=== PATIENT | female | born 1955 | race Caucasian/White ===

== ENCOUNTER 2019-06-25 10:29 | Outpatient (CLI) | payer BC, SELFPAY ==
--- NOTE | ~2019-06-25 | US_ITS ---
EXAMINATION: US abscess cyst aspiration DATE: 06/25/2019 11:52 INDICATION: Enlarged left cervical lymph nodes TECHNIQUE: The procedure including the risks and benefits was discussed with the patient. Risks discu ssed included bleeding and infection. The patient understood the risks and agreed to proceed. The sk in overlying the dominant lesion of concern at the left base of the neck/supraclavicular region was p repped and draped in usual sterile fashion. Anesthetic was administered with 1% lidocaine subcutaneo usly. An 18 gauge needle was advanced under continuous ultrasound observation to the lesion of inter est. 10 mm of purulent appearing fluid was aspirated and sent to the lab for Gram stain and aerobic/a naerobic cultures. Given the clear signs of infection the planned core biopsy was deferred. The need le was removed and the entry site was cleaned and dressed. Post procedure ultrasound demonstrated no hemorrhage. COMPARISON: Outside institution CT dated 06/12/2019 FINDINGS: There was significant focal erythema immediately overlying the region of concern with assoc iated tenderness to palpation. Ultrasound images demonstrate a 3.2 x 3.2 x 3.2 cm globular hypoechoic lesion with irregular peripheral echogenic wall consistent with abscess at the region of prior clust er of enlarged left posterior triangle lymph nodes indicated by a marker on the prior CT. A few addit ional small hypoechoic lymph nodes are seen peripheral to the likely suppurative lymph node. On merchant patroller imaging a few mildly enlarged likely reactive left jugular chain lymph nodes are identified. IMPRESSION: 1. Successful Ultrasound-guided aspiration of a 3.2 x 3.2 x 3.2 cm abscess at the region of concern l ikely representing a suppurative lymph node. Planned core needle biopsy was deferred at this time. Co nsider follow-up ultrasound imaging in a few months following treatment to document resolution of the likely reactive lymphadenopathy. Dr. Godinez discussed these findings with Dr. Nielsen at 12:10 P M. Reviewed, dictated and finalized at location A. IMPRESSION: 1. Successful Ultrasound-guided aspiration of a 3.2 x 3.2 x 3.2 cm abscess at t he region of concern likely representing a suppurative lymph node. Planned core needle biopsy was deferred at this time. Consider follow-up ultrasound imaging in a few months following treatment to document resolution of the likely react biju lymphadenopathy. Dr. Godinez discussed these findings with Dr. Gia rojas 12:10 PM.
== END 2019-06-25 10:30 | disposition home or self-care (01) ==
PROVIDERS: PCP Family Medicine Sports Medicine; Visit Provider Otolaryngology
DX: R59.0 Localized enlarged lymph nodes (principal)
CPT/HCPCS: 76942; 87070; 87075; 87077; 87205

== ENCOUNTER → 2022-09-08 12:50 | Outpatient (CLI) | payer MEDICARE, SELFPAY ==
--- NOTE | ~2022-09-08 | MR_ITS ---
EXAMINATION: MR cervical spine wo con DATE: 09/08/2022 13:23 INDICATION: Cervical radiculopathy. TECHNIQUE: Magnetic resonance imaging (MRI) of the cervical spine was performed without intravenous c ontrast. Sequences included sagittal T2-weighted FSE, sagittal T2-weighted FS FSE, sagittal T1-weight ed FSE, axial MERGE, and axial T2-weighted FSE. COMPARISON: None FINDINGS: There is hypolordosis of cervical spine. Vertebral body heights are normal. There is modera tely decreased disc height at C4-C5 and severely decreased disc height at C5-C6 and C6-C7. There is i ncreased T2-weighted signal intensity in the spinal cord at C5-C6 centered at the francois matter, consis tent with myelomalacia. The following disc levels are specifically discussed: C2-C3: The disc does not extend beyond the endplate margin. There is no uncovertebral joint osteoarth ritis. There is severe bilateral facet joint osteoarthritis. There is mild right neural foraminal danie nosis. There is no central canal stenosis. C3-C4: The disc is bulging. There is mild bilateral uncovertebral joint osteoarthritis. There is wes re bilateral facet joint osteoarthritis. There is mild lateral neural foraminal stenosis. There is mi ld central canal stenosis with ventral indentation of the spinal cord. C4-C5: The disc is bulging. There is moderate bilateral uncovertebral joint osteoarthritis. There is severe right and moderate left facet joint osteoarthritis. There is moderate right and mild left neur al foraminal stenosis. There is mild central canal stenosis with ventral indentation of the spinal co rd. C5-C6: The disc is bulging. There is severe bilateral uncovertebral joint osteoarthritis. There is mi ld bilateral facet joint osteoarthritis. There is moderate and severe left neural foraminal stenosis. There is severe central canal stenosis with ventral and dorsal indentation of the spinal cord and in creased signal in the cord. C6-C7: The disc is bulging. There is severe bilateral uncovertebral joint osteoarthritis. There is mi ld right facet joint osteoarthritis. There is mild bilateral neural foraminal stenosis. There is mild central canal stenosis. C7-T1: The disc does not extend beyond the endplate margin. There is no uncovertebral joint osteoarth ritis. There is severe right and mild left facet joint osteoarthritis. There is mild right neural for aminal stenosis. There is no central canal stenosis. IMPRESSION: 1. Myelomalacia at C5-C6. 2. Severe cervical spondylosis. Reviewed, dictated and finalized at location A.
== END ==
PROVIDERS: PCP Family Medicine Sports Medicine
DX: M47.22 Other spondylosis with radiculopathy, cervical region (principal)
CPT/HCPCS: 72141

== ENCOUNTER 2022-12-09 11:23 | Outpatient (CLI) | payer MEDICARE, SELFPAY ==
--- NOTE | ~2022-12-09 | XR_ITS ---
EXAMINATION: XR chest 2V DATE: 12/09/2022 12:11 INDICATION: Cervical spinal stenosis for preoperative evaluation. TECHNIQUE: PA and lateral views of the chest were obtained. COMPARISON: None FINDINGS: The lungs are clear with no focal airspace opacities, pulmonary edema, pleural effusion or pneumothor ax. The cardiomediastinal silhouette is normal. Cholecystectomy clips in right upper quadrant. Modera te midthoracic spondylosis. IMPRESSION: 1. No acute cardiopulmonary disease. Reviewed, dictated and finalized at location A.
--- NOTE | 2022-12-09 11:32 | ECG_ITS ---
Measurements Intervals [place] Rate: 69 P: 33 IN: 167 QRS: -9 QRSD: 83 T: 10 QT: 406 QTc: 436 Interpretive Statements SINUS RHYTHM BORDERLINE T WAVE ABNORMALITY- INFERIOR LEADS BASELINE ARTIFACT- I, II, III, AVR, AVL, AVF, V1-V6 BORDERLINE ECG NO PREVIOUS ECG AVAILABLE FOR COMPARISON Electronically Signed On 12-09-2022 14:24:04 CDT by Miguel Das D.O.
[2022-12-09 12:11] LABS: Hematocrit 39.2 % (37.0-47.0); Hemoglobin 13.1 g/dL (12.0-15.0); Mean Corpuscular HGB Conc 33.4 g/dl (32-36); Mean Corpuscular Hemoglobin 30.6 pg (26-34); Mean Corpuscular Volume 91.6 fl (80-100); Mean Platelet Volume 9.9 fl (7.4-10.4); Platelet Count Result 401 k/mm3 (150-375); Red Blood Count 4.28 M/mm3 (4.2-5.4); Red Cell Distribution Width 12.5 % (11.5-14.5); White Blood Count 8.9 K/mm3 (4.5-10.0)
[2022-12-09 12:21] LABS: Prothrombin Time 13.9 Seconds (11.1-14.7)
[2022-12-09 12:33] LABS: Anion Gap 6 mmol/L (8-16); Blood Urea Nitrogen 14 mg/dL (7-17); Calcium 8.9 mg/dL (8.4-10.2); Carbon Dioxide 32 mmol/L (22-30); Chloride 100 mmol/L (98-107); Estimated Glomerular Filt Rate > 60; Glucose 111 mg/dL (65-110); Potassium 3.8 mmol/L (3.4-5.0); Sodium 138 mmol/L (137-145)
[2022-12-09 12:37] LABS: Add Urine Microscopic? YES; Appearance Urine Cloudy (Clear); Bacteria Urine None Seen /hpf; Bilirubin Urine 1+ (Negative); Blood Urine Negative (Negative); Calcium Oxalate Crystals Urine Present /hpf; Color Urine Dark Yellow (Yellow); Glucose Urine UA Negative (Negative); Ketones Urine Trace mg/dL (Negative); Leukocyte Esterase Ur Negative LEU/UL (Negative); Need Manual Microscopic Reviewed; Nitrate Urine Negative (Negative); Non Pathogenic Casts 0-2; Protein Urine Trace mg/dL (Negative); Squamous Epithelial Cell Urine Occasional /hpf (Few); Urobilinogen Urine 0.2 mg/dL (<2.0); WBC Urine 0-5 /hpf; pH Urine 5.5 (5.0-9.0)
== END 2022-12-09 11:24 | disposition home or self-care (01) ==
LOC: ANHSURGERY 11:26
PROVIDERS: PCP Family Medicine Sports Medicine; Visit Provider Neurological Surgery
DX: M48.02 Spinal stenosis, cervical region (principal); I10 Essential (primary) hypertension; Z01.818 Encounter for other preprocedural examination; R94.31 Abnormal electrocardiogram [ECG] [EKG]
CPT/HCPCS: 36415; 71046; 80048; 81001; 85027; 85610; 85730; 86850; 86900; 86901; 93005

== ENCOUNTER 2023-01-21 11:33 | Outpatient (CLI) | payer MEDICARE, SELFPAY | END 2023-01-21 11:34 | disposition home or self-care (01) | LOC: ANHSURGERY 11:36 | PROVIDERS: PCP Family Medicine Sports Medicine; Visit Provider Neurological Surgery | DX: Z01.818 Encounter for other preprocedural examination (principal); M48.02 Spinal stenosis, cervical region | CPT/HCPCS: 36415; 86850; 86900; 86901 ==

== ENCOUNTER 2023-01-27 01:39 | Day surgery (SDC) | payer MEDICARE, SELFPAY ==
[2022-12-09 09:40] VITALS: BMI 33.9
--- NOTE | 2022-12-09 10:21 | PC.NURSE ---
PRE-OP INSTRUCTIONS, PLEASE READ CAREFULLY Report to the Outpatient Waiting Room, entrance under the green pavilion located off [facility], at time _0630_ on date _12/14/22_. Planned Procedure Time: _0830_. PACK A SMALL OVERNIGHT BAG AND LEAVE IN THE CAR Time changes happen often and if your time is changed the preop area will call you the afternoon before. - You and your visitor will be asked to self-screen and do not enter if you have any COVID symptoms. - A mask is optional within the hospital at this time. -VISITING HOURS 8AM-8PM Patients may have clear liquids (water, carbonated beverages, clear teas, apple juice) until 3 hours prior to surgery (0530 AM) with a maximum of 20 ounces. - No food from midnight until time of surgery Take the following medications with a SIP of water the morning of surgery: _CARVEDILOL, LEVOTHYROXINE, & PAIN PILL IF NEEDED_ DO NOT STOP ANY OF YOUR OTHER PRESCRIPTION MEDICATIONS PRIOR TO SURGERY ?EXCEPT THE FOLLOWING Medications to discontinue per ANESTHESIA - _SUPPLEMENTS 3 DAYS PRIOR TO SURGERY, Date to take last dose 12/10/22_ Please no make-up, nail marshallese, hairspray, perfume, deodorant, or body powder the day of surgery. No jewelry (including any body piercings) or valuables the day of surgery, leave them at home. Please take a shower or bath the night before, or the morning of, surgery with an antibacterial soap. Wear comfortable, loose fitting clothing. - Jewelry must be removed prior to entering the operating room. Rings and piercings that are not removed may be cut off. - The hospital will not accept responsibility for valuables. - Please leave all valuables, including medications, at home the day of surgery. If you are going home after surgery, a licensed set key driver must drive you home. - NO public transportation without another adult if you receive anesthesia. - We recommend that an adult stay with you for 24 hours following discharge. - We also recommend that you do not drive, make important decision, drink alcoholic beverages, or take any drugs that were not prescribed by your health care provider for at least 24 hours after your discharge time. Follow any additional instructions given to you from your surgeon. If you or anyone in your household have experienced Covid symptoms in the past week, please notify your surgeon or the nurse liaison at the phone number below for possible testing. Telephone instructions given to _PATIENT_and asked if any additional questions and then verbalized understanding. Patient advised to call surgeon office or pre surgery nurse liaison [phone] if any additional questions.
--- NOTE | 2023-01-18 12:26 | PC.NURSE ---
Report to the Outpatient Waiting Room, entrance under the green pavilion located off [facility], at time _1030_ on date _[id number]_. Planned Procedure Time: _1230_. Time changes happen often and if your time is changed the preop area will call you the afternoon before. - You and your visitor will be asked to self-screen and do not enter if you have any COVID symptoms. - A mask is optional within the hospital at this time. Patients may have clear liquids (water, carbonated beverages, clear teas, apple juice) until 3 hours prior to surgery with a maximum of 20 ounces. - No food from midnight until time of surgery Take the following medications with a SIP of water the morning of surgery: ___Carvedilol, Levothyroxine and if needed pain pill. DO NOT STOP ANY OF YOUR OTHER PRESCRIPTION MEDICATIONS PRIOR TO SURGERY ?EXCEPT THE FOLLOWING Medications to discontinue per physician ____All vitamins and supplements Date to take last izsq__[phone] Please no make-up, nail greenlandic, hairspray, perfume, deodorant, or body powder the day of surgery. No jewelry (including any body piercings) or valuables the day of surgery, leave them at home. Please take a shower or bath the night before, or the morning of, surgery with an antibacterial soap. Wear comfortable, loose fitting clothing. - Jewelry must be removed prior to entering the operating room. Rings and piercings that are not removed may be cut off. - The hospital will not accept responsibility for valuables. - Please leave all valuables, including medications, at home the day of surgery. If you are going home after surgery, a licensed sales route driver must drive you home. - NO public transportation without another adult if you receive anesthesia. - We recommend that an adult stay with you for 24 hours following discharge. - We also recommend that you do not drive, make important decision, drink alcoholic beverages, or take any drugs that were not prescribed by your health care provider for at least 24 hours after your discharge time. Follow any additional instructions given to you from your surgeon. If you or anyone in your household have experienced Covid symptoms in the past week, please notify your surgeon or the nurse liaison at the phone number below for possible testing. Telephone instructions given to __Mckayla_and asked if any additional questions and then verbalized understanding. Patient advised to call surgeon office or pre surgery nurse liaison [phone] if any additional questions.
--- NOTE | 2023-01-26 14:23 | WPDANESEPPF ---
Anes - Initial Pre Proc Eval Procedure: Operation Date: 01/27/23 12:30 Proposed Procedures p C5-6, C6-7 Anterior Cervical Discectomy with Fusion - Kavita Espinoza MD Date/Time: 01/26/23 14:23 Surgeon: Kavita Espinoza MD Pre Op Diagnosis: spinal stenosis of cervical region Patient Data Age: 67 Gender: F Height: 1.57 m Weight: 84.09 kg Allergies Allergy/AdvReac Type Severity Reaction Status Date / Time atorvastatin AdvReac Mild MUSCLE Verified 01/27/23 08:03 WEAKNESS simvastatin AdvReac Mild MUSCLE Verified 01/27/23 08:03 WEAKNESS tramadol AdvReac Unknown Gi upset Verified 01/27/23 08:03 Home Medications Medication Instructions Recorded Confirmed Type ezetimibe 10 mg tablet 10 mg PO DAILY 02/04/22 01/27/23 History levothyroxine 50 mcg capsule 50 mcg PO DAILY 02/04/22 01/27/23 History finasteride 1 mg tablet 1 mg PO DAILY 10/01/22 01/27/23 History hydrocodone 5 mg-acetaminophen 325 1 tablet PO QHS PRN Pain 10/01/22 01/27/23 History mg tablet NAC 2 tab-cap DAILY 12/09/22 01/27/23 History Sbi 300 g DAILY 12/09/22 01/27/23 History Vit D With Vit K 10 drp DAILY 12/09/22 01/27/23 History carvedilol 6.25 mg tablet 6.25 mg BID 12/09/22 01/27/23 History magnesium 200 mg tablet 200 mg PO DAILY 12/09/22 01/27/23 History Patient hx anesthesia problems: none Family hx anesthesia problems: none Results Review: All pre-operative results and documents have been reviewed as part of the pre-operative evaluation. [facility] Past Medical History Medical History (Updated 01/26/23 @ 14:23 by Fabricio Vora DO) Cholecystectomy planned CTS (carpal tunnel syndrome) BL Hiatal hernia Hyperlipidemia Hypothyroidism Mitral valve prolapse PONV (postoperative nausea and vomiting) Screening mammogram for breast cancer Surgical History Surgical History H/O section H/O knee surgery X2 H/O tubal ligation History of appendectomy Family History Family History (Updated 10/01/22 @ 12:08 by Nubia Garrett MA) Mother Ovarian cancer Hypertension Depression Sibling Heart murmur Hypertension Depression Father Alcoholism Heart disease Cerebrovascular accident Grandparent Hypertension Heart disease Cerebrovascular accident Grandparent Cancer Heart disease Other Family history of arthritis Family history of heart disease in male family member before age 55 Social History Social History (Updated 10/01/22 @ 12:06 by Nubia Garrett MA) Social History: Mckayla is very confident filling out medical forms. In the last 12 months she has not received assistance from an organization or program. The date of her last physical exam was 09/16/22. She denies being . She has had 4 pregnancies resulting in 4 live births. The date of her last menstrual cycle was in 2005. Her usual menstrual cycle was irregular. She is menopausal and does experience menopausal symptoms. The date of her last PAP test was 2021, with normal results. She does not perform self breast exams. She denies ever giving herself street drugs with a needle. She reports eating a healthy diet and and exercising regularly. She denies having frequent falls. She reports being sexually active but not trying for a . Her caffeine intake consists of 2 cups per day of coffee, tea, and/or cola. Smoking packs per day: 0.5 Smoking cigarettes per day: 10.0 Years smoked: 35 Smoking pack-years: 17.50 Smoking status: Former smoker Tobacco type: cigarettes Second hand tobacco smoke exposure: No Smoking end date: 04/04/86 Alcohol intake: current Alcohol use details: 3 DRINKS/EVERY 2 WKS - NONE FOR PAST SEVERAL WEEKS Substance use: current Substance use type: marijuana Other substance usage details: CBD/THC 5MG PRN - PAIN Last use: 12/07/22 Lack of Transportation: No Lack of Food: Never True Current Housing: I Have Housing Concerne
[2023-01-27] VITALS (14 sets, daily range): BP systolic 127–157; BP diastolic 73–95; PULSE 73–85; RESP 12–20; TEMP 36.4–37.1; O2SAT 94–100
--- NOTE | ~2023-01-27 | XR_ITS ---
XR fluoroscopy no charge Procedure: Discectomy with fusion TECHNIQUE: Fluoroscopy used during Discectomy with fusion performed by [Kavita Espinoza MD] on 1 . 12 seconds of fluoroscopy with 4 fluoroscopic images captured. ]The DAP for this procedure was [XXXXDAP#.#XXX mGym2. ] FINDINGS: Correlate with procedure note. Surgical changes are present at C5-7. IMPRESSION: Fluoroscopy used during Discectomy with fusion at C5-C7. Please refer to procedural repor t. Reviewed, dictated and finalized at location L. IMPRESSION: Fluoroscopy used during Discectomy with fusion at C5-C7. Please ref er to procedural report.
[2023-01-27] MEDS: LACTATED RINGERS 1,000 ML 30 ML IV CONT ×2 (08:32→13:37)
--- NOTE | 2023-01-27 10:19 | PM.IMHP ---
H&P: HPI History of Present Illness Date/Time: 01/27/23 10:19 Chief Complaint: Mckayla Monroy? is a very pleasant 67-year-old female who presents with a chief complaint of neck and upper extremity symptoms.? The patient has a relatively longstanding history of intermittent neck pain and headaches but these symptoms had previously been mild and not limiting.? The patient has sustained a significant fall in June of 2022, however, she lost her footing and fell striking her face on the ground.? She did not lose consciousness but at the time of the fall she states that she lost feeling in her upper and lower extremities and was unable to move either her upper or lower extremities. ? these symptoms were self-limited ultimately the patient regained control of her extremities.? She was taken to an outside emergency department and underwent a head CT which was negative.? She was discharged to home.? Ultimately, however, the patient has remained with radiating symptoms into her upper extremities, particularly a burning dysesthetic pain that extends from the shoulders to the proximal arm forearm and hands.? She notes pain in the neck.? She notes a shock-like feeling in her back with extension of the neck.? She also notes some difficulties with her gait. ? Mckayla has undergone MRI of the cervical spine performed on September 08, 2022 at [place].? This shows multilevel spondylotic changes with disc desiccation and loss of disc space height throughout the cervical spine. ? in particular at the C5-6 level a combination of disc bulge and ligamentous hypertrophy contribute to severe spinal stenosis with associated cord signal change.? There is multilevel neuroforaminal narrowing but in particular at C6-7 there is moderate to severe bilateral neuroforaminal narrowing. ? she has also seen Dr. Wiley with Neurology who performed Electrodiagnostic testing on September 16, 2022 that is suggestive of bilateral C7 radiculopathy. ? Dr. Wiley referred her to me with concerns for myelopathy Mckayla? did attempt physical therapy in the weeks after her fall.? She was unable to tolerate therapy and it appeared to aggravate her pain.? She feels that her symptoms have been relatively stable over the past 3 months. She presents today for surgery, specifically ACDF at C5-6 and C6-7 PMFSH Past Medical History Medical History (Updated 01/26/23 @ 14:23 by Fabricio Vora DO) Cholecystectomy planned CTS (carpal tunnel syndrome) BL Hiatal hernia Hyperlipidemia Hypothyroidism Mitral valve prolapse PONV (postoperative nausea and vomiting) Screening mammogram for breast cancer Surgical History Surgical History H/O section H/O knee surgery X2 H/O tubal ligation History of appendectomy Family History Family History (Updated 10/01/22 @ 12:08 by Nubia Garrett MA) Mother Ovarian cancer Hypertension Depression Sibling Heart murmur Hypertension Depression Father Alcoholism Heart disease Cerebrovascular accident Grandparent Hypertension Heart disease Cerebrovascular accident Grandparent Cancer Heart disease Other Family history of arthritis Family history of heart disease in male family member before age 55 Social History Social History (Updated 10/01/22 @ 12:06 by Nubia Garrett MA) Social History: Mckayla is very confident filling out medical forms. In the last 12 months she has not received assistance from an organization or program. The date of her last physical exam was 09/16/22. She denies being . She has had 4 pregnancies resulting in 4 live births. The date of her last menstrual cycle was in 2005. Her usual menstrual cycle was irregular. She is menopausal and does experience menopausal symptoms. The date of her last PAP test was 2021, with normal results. She does not perform self breast exams. She denies ever giving herself street drugs with a needle. She reports eating a healthy
--- NOTE | 2023-01-27 10:22 | WPDHPUPDATE1 ---
History and Physical Update Update Date/Time: 01/27/23 10:22 History and Physical has been reviewed, including an updated exam of the patient. There are NO changes in the patient's condition. Risks, benefits, and alternatives have been discussed and questions answered. Patient agrees to proceed with procedure.
[2023-01-27] MEDS: ceFAZolin 2 GM/D5W 50 ML 2 GM/50 ML BAG IVPB (10:47)
--- NOTE | 2023-01-27 13:05 | W.PM.PROC2 ---
Procedure Note - Detailed Date of Procedure 01/27/23 Pre-op Diagnosis spinal stenosis of cervical region Post-op Diagnosis Same Procedure Performed ACDF C5-6 and C6-7 Surgeon Kavita Espinoza MD Anesthesia General Indications Mckayla Monroy is a very pleasant? 67 year old? female who presents at the request of? Dr. Wiley with signs and symptoms of neck and upper extremity pain as well as Lhermitte's phenomena and balance difficulties in the setting of cervical spondylosis with central and neuroforaminal stenosis most pronounced at C5-6 where there is severe stenosis and cord signal change as well as neuroforaminal stenosis at C6-7 on imaging.? She has a finding of hyperreflexia on examination.? She has tried treatments that include? formal physical therapy. In the office today the most concerning symptom to the patient was that her pain is increasingly limiting and she is concerned about her balance difficulties. The patient and I have had an extended discussion in the office regarding the options for management of these clinical symptoms and radiographic findings. We have discussed the option of a return to physical therapy. We have discussed the option of interventional pain management strategies including JAMA or ablative procedures. In this case we have more specifically discussed minute that in the setting of cervical stenosis with symptoms concerning for myelopathy, especially as the patient has not tolerated physical therapy to date, I tend to favor proceeding with surgical intervention. Finally, we have generally discussed the option of surgery. In the absence of functional deficits, I have explained that my preference is to exhaust non surgical options prior to consideration of surgery. However, we have discussed that in this situation with stenosis and myelopathic signs and symptoms, it would be most appropriate to consider surgical intervention. In this case we have discussed that surgery would entail a ACDF at C5-6 and C6-7. We have discussed that with myeloradiculopathy, if we were to pursue surgery I would advocate for an ACDF at? C5-6 and C6-7. Mckayla is increasingly limited by her symptoms and is interested in consideration of surgery. I have discussed the indications as well as the risks of surgery, including but not limited to bleeding, infection, CSF leak, numbness, weakness, paralysis, stroke, coma, even as well as the risks of adjacent level disease, damage to critical structures in the neck including the esophagus, trachea, great vessels and recurrent laryngeal nerve. I have described the fundamentals of the surgical procedure as well as the typical recovery. She indicates understanding and is inclined to proceed. Description of Procedure The patient was brought into the operating room where general anesthesia was induced without incident.? appropriate monitoring and access was obtained.? SSEP and MEP were obtained and monitored throughout the case.? The patient was positioned in a supine position on the OR table with a roll underneath her shoulder blades.? Her neck was extended.? All extremities were padded. The C5-6 level was identified with fluoroscopy and the patient was prepped and draped in a sterile fashion.? A linear incision was made in a skin crease in the left paratracheal region overlying the C5-6 disc space.? Hemostasis was achieved.? The platysma was dissected, cauterized and incised sharply.? The muscle was undermined and a retractor was placed.? The sternocleidomastoid and strap muscles were identified and dissected and, in an intramuscular plane dissectors were advanced to the prevertebral space. A bent needle was placed in the C5-6 disc space and the level was confirmed.? The self retaining retractors were placed.? Dissection was carried down to expose the C6-7 disc space in addition to the C5-6 disc space.? The prevertebral osteophytes were drilled and the longus coli muscle was dissected with cautery laterally.? Rose Mary tucker
--- NOTE | 2023-01-27 15:23 | ADMGEN ---
This patient, Mckayla Monroy, was admitted to Medical Room 258-01. Patient/family oriented to hospital policies and general routines including ID bracelet, bed and alarms, visiting hours, pain management, procedures, bathroom and other care routines, personal items, smoking policy, room service/diet, and visiting hours. Information on how to activate the Rapid Response Team has been discussed. Patient/Family are encouraged to report perceived risks to care and to ask questions if they do not understand what they are told or what they should do.
[2023-01-27] MEDS: HYDROcodone/acetaminophen (*CRX) 10-325 MG TABLET 1 TAB PO (16:51)
[2023-01-27] MEDS: CYCLOBENZAPRINE HCL 10 MG TABLET PO (18:00)
[2023-01-27] MEDS: carvediloL 6.25 MG TABLET PO (21:52)
[2023-01-27] MEDS: DOCUSATE SODIUM 100 MG CAPSULE PO (21:52)
[2023-01-28 00:50] VITALS: BP 104/59; PULSE 71; RESP 20; TEMP 36.4; O2SAT 97
[2023-01-28] MEDS: HYDROcodone/acetaminophen (*CRX) 10-325 MG TABLET 1 TAB PO ×2 (02:57→09:54)
[2023-01-28 05:07] VITALS: BP 115/65; PULSE 67; RESP 18; TEMP 36.4; O2SAT 95
[2023-01-28] MEDS: LEVOTHYROXINE SODIUM 50 MCG TABLET PO (06:22)
[2023-01-28 09:48] VITALS: BP 124/68
[2023-01-28 09:51] VITALS: PULSE 68
[2023-01-28] MEDS: carvediloL 6.25 MG TABLET PO (09:51)
[2023-01-28] MEDS: DOCUSATE SODIUM 100 MG CAPSULE PO (09:51)
[2023-01-28] MEDS: EZETIMIBE 10 MG TABLET PO (09:54)
[2023-01-28 10:09] VITALS: BP 126/74; PULSE 74; RESP 18; TEMP 36.7; O2SAT 98
--- NOTE | 2023-01-28 11:10 | PC.NURSE ---
On 01/28/23, the student, [Chase Alba], provided care and completed [facility] documentation on this patient. I have reviewed the student's documentation and agree with the findings.
[2023-01-28] MEDS: CYCLOBENZAPRINE HCL 10 MG TABLET PO (11:25)
== END 2023-01-28 11:40 | disposition home or self-care (01) ==
LOC: ANHSURGERY 13:19 → ANH2MED 15:19
PROVIDERS: PCP Family Medicine Sports Medicine; Visit Provider Neurological Surgery
PROC: (CPT 63030; principal; 2023-01-27 10:00)
DX: M48.02 Spinal stenosis, cervical region (principal); E78.5 Hyperlipidemia, unspecified; E03.9 Hypothyroidism, unspecified; I34.1 Nonrheumatic mitral (valve) prolapse; F12.90 Cannabis use, unspecified, uncomplicated; Z87.891 Personal history of nicotine dependence; E66.9 Obesity, unspecified; Z68.33 Body mass index [BMI] 33.0-33.9, adult
CPT/HCPCS: 22551; 22552; 22853 ×2; 36415; 86850; 86900; 86901; 97161; 99199; A9270; C1713; J0330; J0690; J1100; J1170; J2250; J2405; J2704; J3010; J7120

== ENCOUNTER 2023-03-10 14:30 | Outpatient (CLI) | payer MEDICARE, SELFPAY ==
--- NOTE | ~2023-03-10 | XR_ITS ---
XR_CERV2-3V_CR 03/10/2023 14:53 Indication: Follow-up surgery Procedure: 4 view cervical spine Comparison: No prior studies for comparison. Findings: There are surgical changes consistent with anterior cervical fusion and discectomy at C5-C7 . There are prosthetic disc devices at C5-6 and C6-7. Hardware intact. There is mild-moderate multile kimberlee facet hypertrophy. Normal cervical alignment. No prevertebral soft tissue swelling. No acute frac ture or traumatic malalignment. Impression: 1: Normal cervical alignment post anterior spinal fusion and discectomy at C5 7. Reviewed, dictated and finalized at location L. STAINER Impression: 1: Normal cervical alignment post anterior spinal fusion and discectomy at C5 7 .
== END 2023-03-10 14:31 | disposition home or self-care (01) ==
PROVIDERS: PCP Family Medicine Sports Medicine; Visit Provider Physician Assistant
DX: M48.02 Spinal stenosis, cervical region (principal); Z98.1 Arthrodesis status
CPT/HCPCS: 72040

== ENCOUNTER 2023-05-12 08:44 | Outpatient (CLI) | payer MEDICARE, SELFPAY ==
--- NOTE | ~2023-05-12 | XR_ITS ---
EXAMINATION:XR_CERV2-3V_CR DATE: 05/12/2023 09:05 INDICATION: Neck pain TECHNIQUE: AP, lateral, and odontoid views of the cervical spine are provided. COMPARISON: 03/10/2023 FINDINGS: Alignment is normal. Again noted are changes of anterior fusion and interbody device placem ent from C5 through C7. There has been no interval change. The odontoid process is intact. No fractur e is identified. The vertebral body heights are normal. There is multilevel moderate facet and uncove rtebral joint osteoarthritis. Prevertebral soft tissues are normal. IMPRESSION: 1. Stable surgical changes from C5 through C7 with otherwise mild cervical spondylosis. No acute find ings. Reviewed, dictated and finalized at location L. O MAKER IMPRESSION: 1. Stable surgical changes from C5 through C7 with otherwise mild cervical spon dylosis. No acute findings.
== END 2023-05-12 08:45 | disposition home or self-care (01) ==
PROVIDERS: PCP Family Medicine; Visit Provider Physician Assistant
DX: M48.02 Spinal stenosis, cervical region (principal); Z98.890 Other specified postprocedural states
CPT/HCPCS: 72040

== ENCOUNTER 2023-09-29 20:24 | Emergency (ER) | payer MEDICARE, SELFPAY ==
--- NOTE | ~2023-09-29 | XR_ITS ---
EXAMINATION: XR chest 2V Exam Date/Time: 09/29/2023 21:40 CDT HISTORY: dizziness WITH NAUSEA X 1 DAY Comparison: 12/09/2022. RESULT: Lines, tubes, and devices: ACDF hardware. Epidural leads over the midthoracic spine. Cholecystomy cl ips. Lungs and pleura: Clear. Cardiomediastinal silhouette: Stable. Other: No acute osseous or upper abdominal finding. IMPRESSION: No acute cardiopulmonary process. Reviewed, dictated and finalized at location K.
[2023-09-29 20:25] VITALS: BP 156/78; PULSE 69; RESP 15; TEMP 36.6; O2SAT 99
[2023-09-29 21:18] VITALS: PULSE 69
[2023-09-29 21:19] VITALS: BP 151/92; PULSE 64; RESP 20; O2SAT 100
--- NOTE | 2023-09-29 21:23 | ECG_ITS ---
Test Date: 2023-09-29 21:31:22 Measurements Intervals [place] Rate: 62 P: 20 NC: 176 QRS: -17 QRSD: 88 T: 2 QT: 408 QTc: 417 Interpretive Statements SINUS RHYTHM NORMAL ELECTROCARDIOGRAM No previous ECG available for comparison Electronically Signed On 09-30-2023 07:24:14 CDT by Wesley Grande M.D.
[2023-09-29 21:37] LABS: Basophils Absolute Auto 0.1 K/mm3 (0.0-0.1); Basophils Percent Auto 0.8 % (0.2-1.2); Eosinophils Absolute Auto 0.2 K/mm3 (0-0.3); Eosinophils Percent Auto 2.7 % (0-4.4); Hematocrit 38.9 % (37.0-47.0); Hemoglobin 13.3 g/dL (12.0-15.0); Immature Granulocyte Absolute 0.01 K/mm3 (0.00-0.031); Immature Granulocyte Percent A 0.2 % (0-0.5); Lymphocytes Absolute Auto 2.79 K/mm3 (0.9-3.2); Lymphocytes Percent Auto 44.2 % (18.3-44.2); Mean Corpuscular HGB Conc 34.2 g/dl (32-36); Mean Corpuscular Hemoglobin 30.6 pg (26-34); Mean Corpuscular Volume 89.6 fl (80-100); Mean Platelet Volume 10.3 fl (7.4-10.4); Monocytes Absolute Auto 0.5 K/mm3 (0.1-0.6); Monocytes Percent Auto 8.6 % (2.6-8.5); Neutrophils Absolute Auto 2.8 K/mm3 (1.3-6.7); Neutrophils Percent Auto 43.5 % (45.5-73.1); Platelet Count Result 313 k/mm3 (150-375); Red Blood Count 4.34 M/mm3 (4.2-5.4); Red Cell Distribution Width 12.2 % (11.5-14.5); White Blood Count 6.3 K/mm3 (4.5-10.0)
[2023-09-29 21:48] LABS: Alanine Aminotransferase 28 U/L (6-35); Albumin Level 4.5 g/dL (3.5-5.1); Alkaline Phosphatase 80 U/L (38-126); Anion Gap 7 mmol/L (4-12); Aspartate Amino Transferase 34 U/L (14-36); Bilirubin,Total 0.4 mg/dL (0.2-1.3); Blood Urea Nitrogen 11 mg/dL (7-17); Calcium 9.1 mg/dL (8.4-10.2); Carbon Dioxide 30 mmol/L (22-30); Chloride 105 mmol/L (98-107); Estimated CRCL calculation 88 ml/min; Estimated Glomerular Filt Rate > 60; Glucose 110 mg/dL (65-110); INR 1.1; Lipase 38 U/L (23-300); Potassium 3.4 mmol/L (3.4-5.0); Prothrombin Time 14.4 Seconds (11.1-14.7); Sodium 142 mmol/L (137-145)
[2023-09-29 21:49] LABS: Partial Thromboplastin Time 32.7 Seconds (22.3-36.8)
[2023-09-29 21:59] LABS: Troponin I < 0.012 ng/mL (0.000-0.034)
[2023-09-29 22:54] VITALS: BP 156/81; PULSE 63; RESP 20; O2SAT 99
[2023-09-29] MEDS: MECLIZINE HCL 25 MG TABLET 50 MG PO (23:50)
[2023-09-29] MEDS: diazePAM INJ (*CRX) 10 MG/2 ML SYRINGE 5 MG IV PUSH (23:51)
[2023-09-29] MEDS: SODIUM CHLORIDE 0.9% IV 1,000 ML 999 ML IV CONT (23:52)
--- NOTE | 2023-09-30 00:47 | ECG_ITS ---
Test Date: 2023-09-30 01:16:24 Measurements Intervals [place] Rate: 62 P: 29 SC: 201 QRS: -8 QRSD: 99 T: 3 QT: 433 QTc: 442 Interpretive Statements SINUS RHYTHM NORMAL ELECTROCARDIOGRAM Compared to ECG 09/29/2023 21:31:22 No significant changes Electronically Signed On 09-30-2023 07:27:28 CDT by Wesley Grande M.D.
--- NOTE | 2023-09-30 01:15 | ED.GENADULT ---
HPI - General Adult General Chief complaint: Dizziness Stated complaint: vertigo Time Seen by Provider: 09/29/23 22:06 History of Present Illness HPI narrative: patient is a 68-year-old female who presents emergency department with chief complaint of vertigo. Patient reports that she had an episode today where she started getting a sensation of rotation that she would look down toward her head to the right patient reports she has no prior history of vertigo for reports showed multiple family members have had vertigo in the past under symptoms are similar to the ones that her family has had Related Data Home Medications Medication Instructions Recorded Confirmed ezetimibe 10 mg tablet 10 mg PO DAILY 02/04/22 05/13/23 levothyroxine 50 mcg capsule 50 mcg PO DAILY 02/04/22 05/13/23 finasteride 1 mg tablet 1 mg PO DAILY 10/01/22 05/13/23 carvedilol 6.25 mg tablet 6.25 mg BID 12/09/22 05/13/23 Allergies Allergy/AdvReac Type Severity Reaction Status Date / Time atorvastatin AdvReac Mild MUSCLE Verified 09/29/23 21:21 WEAKNESS simvastatin AdvReac Mild MUSCLE Verified 09/29/23 21:21 WEAKNESS tramadol AdvReac Unknown Gi upset Verified 09/29/23 21:21 hydrocodone AdvReac Itching Verified 09/29/23 21:21 Review of Systems Review of Systems: A 10 system review of systems was completed on the patient and is negative except for what is stated in the HPI. Nursing and ancillary documentation was reviewed. PMFSH Past Medical History Medical History Cholecystectomy planned CTS (carpal tunnel syndrome) BL Hiatal hernia Hyperlipidemia Hypothyroidism Mitral valve prolapse PONV (postoperative nausea and vomiting) Screening mammogram for breast cancer Surgical History Surgical History H/O section H/O knee surgery X2 H/O tubal ligation History of appendectomy Family History Family History Mother Ovarian cancer Hypertension Depression Sibling Heart murmur Hypertension Depression Father Alcoholism Heart disease Cerebrovascular accident Grandparent Hypertension Heart disease Cerebrovascular accident Grandparent Cancer Heart disease Other Family history of arthritis Family history of heart disease in male family member before age 55 Social History Social History Social History: Mckayla is very confident filling out medical forms. In the last 12 months she has not received assistance from an organization or program. The date of her last physical exam was 09/16/22. She denies being . She has had 4 pregnancies resulting in 4 live births. The date of her last menstrual cycle was in 2005. Her usual menstrual cycle was irregular. She is menopausal and does experience menopausal symptoms. The date of her last PAP test was 2021, with normal results. She does not perform self breast exams. She denies ever giving herself street drugs with a needle. She reports eating a healthy diet and and exercising regularly. She denies having frequent falls. She reports being sexually active but not trying for a . Her caffeine intake consists of 2 cups per day of coffee, tea, and/or cola. Smoking packs per day: 0.5 Smoking cigarettes per day: 10.0 Years smoked: 35 Smoking pack-years: 17.50 Smoking status: Former smoker Tobacco type: cigarettes Second hand tobacco smoke exposure: No Smoking end date: 04/04/86 Alcohol intake: current Alcohol use details: 3 DRINKS/EVERY 2 WKS - NONE FOR PAST SEVERAL WEEKS Substance use: current Substance use type: marijuana and painkillers Other substance usage details: CBD/THC 5MG PRN - PAIN Last use: 12/07/22 Do You Feel Safe in your Home?: Yes Lack of Transportation: No Lack of F
== END 2023-09-30 01:40 | disposition home or self-care (01) ==
PROVIDERS: Emergency Provider Emergency Medicine; PCP Family Medicine
DX: R42 Dizziness and giddiness (principal); I34.1 Nonrheumatic mitral (valve) prolapse; E78.5 Hyperlipidemia, unspecified; E03.9 Hypothyroidism, unspecified; Z87.891 Personal history of nicotine dependence; Z79.899 Other long term (current) drug therapy
CPT/HCPCS: 36415; 71046; 80053; 83690; 84484; 85025; 85610; 85730; 93005; 96361; 96374; 99284; A9270; J3360; J7030

== ENCOUNTER 2024-08-30 09:14 | Outpatient (CLI) | payer MEDICARE, SELFPAY ==
--- NOTE | ~2024-08-30 | MM_ITS ---
EXAMINATION: MM screening rebecca BI w fran HISTORY: Screening TECHNIQUE: Craniocaudal and mediolateral oblique 3-D tomosynthesis images were obtained and synthetic 2-D images were generated. CAD analysis was submitted and interpreted. COMPARISON: 06/10/2009 BREAST PARENCHYMAL COMPOSITION: Not dense: There are scattered areas of fibroglandular density. FINDINGS: There is no evidence of suspicious mass, calcification, or architectural distortion to sugg est malignancy in either breast. There has been no suspicious interval change. IMPRESSION: 1. No mammographic evidence of malignancy. 2. Recommend routine screening mammography in one year. BI-RADS Category 1: Negative Reviewed, dictated and finalized at location A.
--- OUTSIDE RECORDS SUMMARY | 2024-08-30 09:18 | XMS_ITS ---
Author Organization [facility] [place] ([address]) Address [address] [place] [address] Care Team Providers Care Cnc Maintenance Technician Name Role Phone Jaxson Betancourt Primary Care Provider UnavailDr. Wesley Cerda Unavailable [phone] ZZ-Migration, Provider Unavailable Unavailab REASON FOR VISIT [facility] To [facility] Conversion Encounter Medications Medication SIG (Take, Route, Frequency, Duration) Notes Start Date End Date Status HYDROCODONE CP 5/325 mg uses pr n pain *Please review for potential replacement for e-prescription and drug interaction check* Active Ezetimibe 10 MG 1 tab(s) orally once a day for 30 day(s) Active Carvedilol 6.25 MG 1 tab(s) orally 2 times a day for 30 day(s) Active Levothyroxine Sodium 50 MCG 1 tab(s) orally once a day for 30 day(s) Active Finasteride 5 MG 1 tab(s) orally once a day for 30 day(s) Active Encounters Encounter Location Date Provider Diagnosis [facility] [address] [place] [id number] 09/17/2023 Provider ZZ-Migration Plan Of Treatment No Information Progress Notes * Ann MONROY:1955 ( 69 yo F)Acc No.[id number]:09/17/2023 Patient: Mckayla WONG Provider: Britta Morse :1955 A ge:68 Y S ex:Female Date:09/17/2023 Address:[address] [place], [place] [id number] Pcp:Jaxson Betancourt Subjective: * Chief Complaints: * [facility] . [facility] * Medical History: * Medications: T aking HYDROCODONE CP , Notes to Pharmacist: 5/325 mg uses prn pain *Please review for potential replacement for e-prescription and drug interaction check*, Taking Finasteride 5 MG Tablet 1 tab(s) orally once a day , Taking Levothyroxine Sodium 50 MCG Tablet 1 tab(s) orally once a day , Taking Carvedilol 6.25 MG Tablet 1 tab(s) orally 2 times a day , Taking Ezetimibe 10 MG Tablet 1 tab(s) orally once a day Objective: * Vitals: Assessment: Plan: * Treatment: * Billing Information: * Visit Code: * Procedure Codes: * Electronic signature of Ellyn HANDLEY-Migration on 08/30/2024 at 09:18 AM CDT Sign off status: Pending * Provider: Britta cifuentes Migration Date: 0 09/17/2023 Generated for Hero kulkarni/Reba/Jimmie on: 0 08/30/2024 09:18 AM CDT
--- OUTSIDE RECORDS SUMMARY | 2024-08-30 09:18 | XMS_ITS | Clinical Summary ---
Author Organization [facility] Address [address] [place] [address] Care Team Providers Care Gaming Cage Worker Name Role Phone Jaxson Betancourt MD Primary Care Provider [phone] Source Comments [facility] Affiliates and Associated Physician Practices is amultiple site organization consisting of ambulatory clinics and hospital sitesin [place], [place], [place]. This disclosure is being madepursuant to the Care Everywhere program and may not contain all information available regarding this patient. Last updated 17.[facility] Allergies No known active allergies Medications * Be aware that medications may not be up to date on this document. Alwaysverify current medications with the patient. cyclobenzaprine (FLEXERIL) 10 MG tablet Take 10 mg by mouth as needed 11/16/19 21 Active diphenhydrAMINE (BENADRYL) 50 MG capsule Take 50 mg by mouth Active acetaminophen (TYLENOL) 500 MG capsule Activ e ezetimibe (ZETIA) 10 MG tablet Take 10 mg by mouth once daily 03/12/20 20 Active levothyroxine (SYNTHROID) 50 MCG tablet Take 50 mcg by mouth once daily 03/12/20 20 Active losartan - hydroCHLOROthiazide (HYZAAR) 50-12.5 MG tablet Take 1 tablet by mouth once daily Active Cyanocobalamin (VITAMIN B 12 PO) Take 1,000 % by mouth Active Coenzyme Q10 (CO Q 10 PO) Active Immunizations Immunization Administration Dates Next Due iNFLUENZA VACCINE, RECOM-MELENDEZ, QUADR. (FLUBLOCK QUADRIVALENT; 18Y+) (RIV4) 01/16/2018 Social History Tobacco Use Types Packs/Day Years Used Date Smoking Tobacco: Never Smokeless Tobacco: Never Comments Unknown Sex and Gender Information Value Date Recorded Sex Assigned at Not on file Legal Sex Female 12:41 PM CDT Gender Identity Not on file Sexual Orientation Not on file Last Filed Vital Signs Vital Sign Reading Time Taken Comments Blood Pressure - - Pulse 91 12/23/2020 1:04 PM CDT Temperature - - Respiratory Rate - - Oxygen Saturation 98% 12/23/2020 1:04 PM CDT Inhaled Oxygen Concentration - - Weight 81.6 kg (180 lb) 12/23/2020 1:04 PM CDT Height 161.3 cm (5' 3.5) 12/23/2020 1:04 PM CDT Body Mass Index 31.39 12/23/2020 1:04 PM CDT Plan of Treatment Health Maintenance Due Date Last Done Comments BONE DENSITY TESTING 1955 COLOGUARD (AGES 45-75) - COL ON CA SCREENING 1955 COLON MONITORING 1955 COLONOSCOPY - COLON CA SCREENING 1955 CT COLONOGRAPHY - COLON CA SCREENING 1955 Colorectal Cancer Screening 1955 FIT - COLON CA SCREENING 1955 FLEX SIG - COLON CA SCREENING 1955 LIPID TESTING 1955 MAMMOGRAM 1955 HEPATITIS C SCREENING 01/27/1972 DTAP/TDAP/TD VACCINES (1 - Tdap) 1973 PNEUMOCOCCAL VACCINE 50+ (1 of 1 - PCV) 02/01/2004 ZOSTER VACCINE (1 of 2) 02/01/2004 SCREENING FOR DIABETES 12/23/2020 COVID-19 VACCINE (1 - 2023-2 5 season) 2023 DEPRESSION SCREENING 04/04/2024 INFLUENZA VACCINE (Season Ended) 2024 01/17/20 18 Respiratory Syncytial Virus (RSV) Vaccine Pt: or over 60 yrs (1 - 1-dose 75+ series) 2029 HEPATITIS B VACCINE Aged Out No longe r eligible based on patient's age to complete this topic HIB VACCINE Aged Out No longer eligi ble based on patient's age to complete this topic HPV VACCINE Aged Out No longer eligi ble based on patient's age to complete this topic MENINGOCOCCAL (Group B) VACC INE SHARED DECISION-MAKING Aged Out No longer eligibl e based on patient's age to complete this topic MENINGOCOCCAL GROUPS A/C/Y/W VACCINE Aged Out No longer eligible b ased on patient's age to complete this topic [place] [address] Care Teams Gaming Cage Worker Relationship Specialty Start Date End Date Jaxson Betancourt MD [facility] [place] [address] PCP - General Family Medicine 12/10/20
--- OUTSIDE RECORDS SUMMARY | 2024-08-30 09:18 | XMS_ITS | Patient Health Record ---
Author Organization [facility]ly [facility] [employer] [facility] [employer] [place] ([address]) Address [address] [place] [address] Care Team Providers Care Merchandise Director Name Role Phone Jaxson Betancourt Primary Care Provider UnavailDr. Wesley Cerda Unavailable [phone] ZZ-Migration, Provider Unavailable Unavailab le Allergies No Known Allergies Reason For Referral No Information Medications Medication SIG (Take, Route, Frequency, Duration) Notes Start Date End Date Status FINASTERIDE 5 mg 1 tab(s) orally once a day for 30 day(s) Active LEVOTHYROXINE 50 mcg (0.05 mg) 1 tab(s) orally once a day for 30 day(s) Active HYDROCODONE CP 5/325 mg uses pr n pain *Please review for potential replacement for e-prescription and drug interaction check* Active CARVEDILOL 6.25 mg 1 tab(s) orally 2 times a day for 30 day(s) Active EZETIMIBE 10 mg 1 tab(s) orally once a day for 30 day(s) Active Ezetimibe 10 MG 1 tab(s) orally once a day for 30 day(s) Active Carvedilol 6.25 MG 1 tab(s) orally 2 times a day for 30 day(s) Active Levothyroxine Sodium 50 MCG 1 tab(s) orally once a day for 30 day(s) Active Finasteride 5 MG 1 tab(s) orally once a day for 30 day(s) Active Problems Problem Type SNOMED Code ICD Code Onset Dates Problem Status W/U Status Risk Notes Problem Hyperlipidemia (272.4) Active confirmed Problem Hypothyroidism (77337426) Hypothyroidism, unspecified (E03.9) Active confirmed Problem Alopecia (55009053) Nonscarring hair loss, unspecified (L65.9) Active confirmed Problem Cervical radiculopathy (32252694) Cervical disc disorder with radiculopathy, unspecified cervical region (M50.10) Active confirmed Problem Cervical radiculopathy (19567411) Radiculopathy, cervical region (M54.12) Active confirmed Problem Cervicalgia (20021404) Cervicalgia (M54.2) Active confirmed Problem Occipital neuralgia (45261987) Occipital neuralgia (M54.81) Active confirmed Problem Paresthesia (finding) (54819200) Paresthesia of skin (R20.2) Active confirmed Problem Essential hypertension (05080082) Essential (primary) hypertension (I10) Active confirmed Problem Paresthesia (finding) (51092434) Paresthesia of skin (R20.2) Active confirmed Problem Cervicogenic headache (075016067) Cervicogenic headache (G44.86) Active confirmed Encounters Encounter Location Date Provider Diagnosis [facility] [address] [address] 09/17/2023 Provider ZZ-Migration Plan Of Treatment Pending Test Test Name Order Date MRI : Spine, Cervical (without gadoliniu m) 09/02/2022 TSH W/REFLEX TO FT4 09/02/2022 VITAMIN B12 09/02/2022 VITAMIN D, 1,25 DIHYDROXY 09/02/2022 EMG (Electromyography) - 2 (two) Extremi ties 09/02/2022 Insurance Providers Payer Name Payer Address Payer Phone Subscriber Number Group Number Insured Name Patient Relationship to Insured Coverage Start Date Coverage End Date [employer] Medicare [address] [place] [phone] [id number] Mckayla Monroy Self - patient is the insured Medical (General) History Medical History History ICD Code Essential (primary) hypertension I10 Nonscarring hair loss, unspecified L65.9 Hypothyroidism, unspecified E03.9 Hyperlipidemia 272.4 Surgical History Surgery Date(Month/Year)
--- OUTSIDE RECORDS SUMMARY | 2024-08-30 09:18 | XMS_ITS ---
Author Organization [facility] Address [address] [place] [address] [place] [address] Care Team Providers Care Chief Service Observer Name Role Phone JOCY ALVES MD Primary Care Provider Pete Horvath Unavailable [phone] HERB SILVA, MIKEY Unavailable Unavailable ALLERGIES Allergen (clinical drug ingredient) Drug/Non Drug Allergy documented on EMR Reaction Allergy Type Onset Date Status buprenorphine Buprenorphine nausea and vomiting Drug Allergy Active hydrocodone Hydrocodone itching Drug Allergy Act biju tramadol Tramadol stomach upset Drug Allergy Act biju REASON FOR VISIT follow up, Left > Right Low Back Pain, Left > Right Lower Extremity Pain MEDICATIONS Medication SIG (Take, Route, Frequency, Duration) Notes Start Date End Date Status B Complex - as directed Orally Active Tylenol 325 MG 1 tablet as needed Orally every 6 hrs Active Magnesium 300 MG 1 capsule with a keyshawn l Orally Once a day for 30 day(s) Active Fish Oil 500 MG 1 capsule Orally Thr ee times a day for 30 day(s) Active Ibuprofen 200 MG 1 tablet with food o r milk as needed Orally Three times a day Active Carvedilol 6.25 MG TAKE 1 TABLET BY JUANCARLOS TH TWICE DAILY Oral for 90 Active Finasteride 1 MG TAKE 1 TABLET BY JUANCARLOS TH DAILY Oral for 100 Active methylPREDNISolone 4 MG as directed Orally Active Levothyroxine Sodium 50 MCG TAKE 1 TABLE T BY MOUTH DAILY Oral for 100 Active Tylenol with Codeine #3 300- 30 MG 1 tablet as needed Orally every 6 hrs Active Ezetimibe 10 MG TAKE 1 TABLET BY JUANCARLOS TH DAILY Oral for 90 Active SOCIAL HISTORY Tobacco Use: Social History Observation Description Date Details (start date - stop date) Former Smoker NA - NA Sex Assigned At : Social History Observation Description Sex Assigned At Unknown Tobacco Use/Smoking Question Answer Notes Are you a former smoker How long has it been since you last smoked? 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 (Z79.01) Active confirmed Long-term current use of anticoagulant ([id number]) VITAL SIGNS Blood pressure systolic 140 mm Hg 08/03/19 25 Blood pressure diastolic 86 mm Hg 025 Heart Rate 62 /min 08/02/2024 Respiratory Rate 16 /min 08/02/2024 Height 5 ft 2 in in 08/02/2024 Weight 179 lbs 08/02/2024 BMI 32.74 kg/m2 08/02/2024 Encounters Encounter Location Date Provider Diagnosis [facility] [address] [place] [id number] 08/02/2024 Pete Ivan Bilateral primary osteoarthritis of knee M17.0 ; Lumbar radiculopathy M54.16 ; Spondylosis without myelopathy or radiculopathy, lumbar region M47.816 ; Intervertebral disc disorders with radiculopathy, lumbar region M51.16 ; Osseous stenosis of neural canal of lumbar region 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 ; Spondylosis without myelopathy or radiculopathy, lumbosacral region M47.817 ; Unilateral primary osteoarthritis, right knee M17.11 ; Spondylosis without myelopathy or radiculopathy, cervical region M47.812 ; Chronic pain syndrome G89.4 ; [employer] 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 The risks of this procedure including pain, bleeding, infection, spinal headache, persistent spinal fluid leak, epidural hematoma, nerve damage, spinal cord injury, paralysis, total spinal anesthesia resulting in cardiopulmonary arrest/, respiratory distress requiring intubation, insomnia, hyperglycemia, hair loss, muscle atrophy, skin depigmentation, weight gain, fluid retention, adrenal suppression, immunosuppression, osteoporosis resulting in fractures, avascular necrosis of the hip, cataracts, bleeding gastric ulcer, worsening pain and failure to relieve pain were discussed and the patient is agreeable to proceeding at this time. 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 I made the patient aware that they will be at an increased risk for a thromboembolic event during this time and they are willing to accept this risk. The patient was instructed to notify their primary care physician and/or colors custodian to obtain clearance prior to discontinuing this medication. 08/02/2024 Other The above-named patient was evaluated in conjunction with Dr. Ivan. I have discussed and reviewed all of the pertinent history, physical examination findings and diagnostic imaging results with him. As a result of our discussion, Dr. Ivan has determined the above assessment and directed the treatment plan. This note was dictated using voice recognition software and therefore inadvertent errors may have occurred. This note was dictated by BLANE Burkett. Total Time Spent with Patient and Medical Decision Makin minutes PLAN OF TREATMENT Treatment Notes Assessment Notes Lumbar radiculopathy Schedule a left L5- S1/S1 transforaminal epidural steroid injection. The risks of this procedure including pain, bleeding, infection, spinal headache, persistent spinal fluid leak, epidural hematoma, nerve damage, spinal cord injury, paralysis, total spinal anesthesia resulting in cardiopulmonary arrest/, respiratory distress requiring intubation, insomnia, hyperglycemia, hair loss, muscle atrophy, skin depigmentation, weight gain, fluid retention, adrenal suppression, immunosuppression, osteoporosis resulting in fractures, avascular necrosis of the hip, cataracts, bleeding gastric ulcer, worsening pain and failure to relieve pain were discussed and the patient is agreeable to proceeding at this time. [facility]PC (current) use of anticoagulant s The patient was instructed to discontinue fish oil for 10 days and ibuprofen for 4 days prior to the procedure. I made the patient aware that they will be at an increased risk for a thromboembolic event during this time and they are willing to accept this risk. The patient was instructed to notify their primary care physician and/or colors custodian to obtain clearance prior to discontinuing this medication. Other The above-named patient was evaluated in conjunction with Dr. Ivan. I have discussed and reviewed all of the pertinent history, physical examination findings and diagnostic imaging results with him. As a result of our discussion, Dr. Ivan has determined the above assessment and directed the treatment plan. This note was dictated using voice recognition software and therefore inadvertent errors may have occurred. This note was dictated by BLANE Burkett. Total Time Spent with Patient and Medical Decision Makin minutes Next Appt Details Follow Up: left L5-S1/S1 TFE , Reason: Provider Name:Pete Ad chin, 09/07/2024 10:30:00 AM, [address] [place], [phone], Progress Notes * Examination Category Sub-Category Detail Notes Examination/ Pre-Anesthesia Assessment General: The patient is alert and nguyễn ented X 3 in moderate distress secondary to pain HEENT: Normocephalic, atrau matic. PERRL. The oropharynx is clear Neck: There is limited ran ge of motion of the cervical spine to 60 degrees with extension and lateral rotation bilaterally. There is tenderness to palpation over the bilateral C3-4 through C7-T1 facet joints. Extension and lateral rotation of the cervical spine reproduces the patients typical axial neck pain. The axial loading test is positive. There is diffuse tenderness to palpation over the bilateral cervical paraspinal muscles and significant muscle spasm throughout Heart: Regular rate and rhy thm Chest: Clear to auscultatio n bilaterally Abdomen: Soft and benign with normal bowel sounds throughout Musculoskeletal and Extremities: There i s tenderness to palpation over the bilateral L2-3 through L5-S1 facet joints. Extension and lateral rotation of the lumbar spine reproduces the patient's typical axial low back pain. Aj's, [place]'s and [place]'s are positive bilaterally. There is tenderness to palpation over the bilateral sacroiliac joints and greater trochanters. There is tenderness to palpation over the bilateral lumbar paraspinal muscles Neurological: There is positive st raight leg raising bilaterally. There are no focal strength deficits in the bilateral upper and lower extremities Skin: Clean, dry and intac t Psychiatric: Mood and affect are normal History and Physical Notes * HPI (History of Present Illness) Category Sub-Category Detail Notes Pain Management Radiographic Imaging An MRI lumbar spine done on 09/15/23 demonstrates DDD and bilateral facet arthropathy throughout the lumbar spine. There are Modic type I changes at L3-4. At L3-4 there is disc space narrowing and a right sided disc herniation causing right lateral recess stenosis. At L4-5 there is severe bilateral facet arthropathy. At L5-S1 there is severe left and moderate right facet hypertrophy. Spinal cord stimulator leads entered the epidural space at T12-L1. An MRI cervical spine done on 09/15/23 demonstrates an anterior cervical discectomy and fusion at C5-7. There is bilateral facet and uncovertebral hypertrophy from C3-4 through C6-7. At C3-4 there is a disc osteophyte complex asymmetric to the left and in combination with uncovertebral hypertrophy there is mild central canal and left foraminal stenosis. At C4-5 there is moderate to severe facet arthropathy and severe uncovertebral joint disease causing severe bilateral foraminal and mild to moderate spinal canal stenosis. At C5-C6 there is severe bilateral facet and uncovertebral hypertrophy causing moderate right and severe left foraminal stenosis. There is moderate central canal stenosis. At C6-7 there is moderate central canal and bilateral foraminal stenosis X-ray right knee performed 04/23/24. Mild to moderate arthritic changes along the lateral joint space, mild arthritic changes along the patellofemoral joint as well as moderate bony arthritic changes along the medial joint space. There is marked medial joint space narrowing. Assessment and Follow-up: Follow-up Plan documen mar:: Yes [facility] Quality 2020: MIPS Documented:: Compliant
--- OUTSIDE RECORDS SUMMARY | 2024-08-30 09:18 | XMS_ITS | Patient Health Record ---
Author Organization [facility] Address [address] [place] [address] JARON Topete [phone] Care Team Providers Care Actimize Architect Name Role Phone JOCY ALVES MD Primary Care Provider Pete Horvath Unavailable [phone] MIKEY FINE Unavailable Unavailable ALLERGIES Allergen (clinical drug ingredient) Drug/Non Drug Allergy documented on EMR Reaction Allergy Type Onset Date Status buprenorphine Buprenorphine nausea and vomiting Drug Allergy Active hydrocodone Hydrocodone itching Drug Allergy Act biju tramadol Tramadol stomach upset Drug Allergy Act biju REASON FOR REFERRAL No Information MEDICATIONS Medication SIG (Take, Route, Frequency, Duration) Notes Start Date End Date Status Levothyroxine Sodium 50 MCG TAKE 1 TABLE T BY MOUTH DAILY Oral for 100 Active Finasteride 1 MG TAKE 1 TABLET BY JUANCARLOS TH DAILY Oral for 100 Active Tylenol with Codeine #3 300- 30 MG 1 tablet as needed Orally every 6 hrs Active methylPREDNISolone 4 MG as directed Orally Active Tylenol 325 MG 1 tablet as needed Orally every 6 hrs Active Ibuprofen 200 MG 1 tablet with food o r milk as needed Orally Three times a day Active Fish Oil 500 MG 1 capsule Orally Thr ee times a day for 30 day(s) Active B Complex - as directed Orally Active Magnesium 300 MG 1 capsule with a keyshawn l Orally Once a day for 30 day(s) Active Carvedilol 6.25 MG TAKE 1 TABLET BY JUANCARLOS TH TWICE DAILY Oral for 90 Active Ezetimibe 10 MG TAKE 1 TABLET BY JUANCARLOS TH DAILY Oral for 90 Active SOCIAL HISTORY Sex Assigned At : Social History Observation Description Sex Assigned At Unknown PROBLEMS Problem Type ICD Code Onset Dates Problem Status W/U Status Risk SNOMED Code Notes Problem Chronic pain syndrome (G89.4) Active confirmed Chronic sherron n syndrome (781892025) Problem Bilateral primary osteoarthritis of knee (M17.0) Active confirmed Osteoarthritis of knee (874299108) Problem Unilateral primary osteoarthritis, right knee (M17.11) Active confirmed Primary osteoarthritis (686406415) Problem Sacroiliitis, not elsewhere classified (M46.1) Active confirmed Solitary sacroiliitis (694680686) Problem Spondylosis without myelopathy or radiculopathy, cervical region (M47.812) Active confirmed Cervical spondylosis without myelopathy (243632256) Problem Spondylosis without myelopathy or radiculopathy, lumbar region (M47.816) Active confirmed Lumbosacral spondylosis without myelopathy (18960259) Problem Spondylosis without myelopathy or radiculopathy, lumbosacral region (M47.817) Active confirmed Lumbosacral spondylosis without myelopathy (disorder) (18273159) Problem Intervertebral disc disorders with radiculopathy, lumbar region (M51.16) Active confirmed Radiculopathy d ue to lumbar intervertebral disc disorder (481358063327954) Problem Radiculopathy, lumbar region (M54.16) Active confirmed Lumbar radiculopathy (218182843) Problem Radiculopathy, lumbosacral region (M54.17) Active confirmed Lumbosacral radiculopathy (4188094) Problem Osseous stenosis of neural canal 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) Active confirmed Spinal stenosis of lumbar region (60590905) Problem long-term (current) use of anticoagulants (Z79.01) Active confirmed Long-term curre nt use of anticoagulant (842213697) 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 Blood pressure diastolic 83 mm Hg 08/28/2024 Height 5 ft 2 in in 08/28/2024 Blood pressure systolic 133 mm Hg 08/28/2024 Weight 180 lbs 08/28/2024 BMI 32.92 kg/m2 08/28/2024 Encounters Encounter Location Date Provider Diagnosis [facility] [address] [place] [address] 04/12/2024 Pete Stynowick Lumbar radiculopathy M54.16 ; Intervertebral disc disorders with radiculopathy, lumbar region M51.16 ; Osseous stenosis of neural canal of lumbar region M99.33 ; Spondylosis without myelopathy or radiculopathy, lumbar region M47.816 ; Spondylosis without myelopathy or radiculopathy, lumbosacral region M47.817 ; Unilateral primary osteoarthritis, right knee M17.11 ; Spondylosis without myelopathy or radiculopathy, cervical region M47.812 ; Chronic pain syndrome G89.4 ; long-term (current) use of non-steroidal anti-inflammatories (NSAID) Z79.1 and 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 analgesic Z79.891 [facility] [address] [place] [address] 04/23/2024 Pete Stynowick Radiculopathy, lumba r region M54.16 ; Intervertebral disc disorders with radiculopathy, lumbar region M51.16 and Osseous stenosis of neural canal of lumbar region M99.33 [facility] [address] [place] [address] 05/15/2024 Pete Stynowick Lumbar radiculopathy M54.16 ; Intervertebral disc disorders with radiculopathy, lumbar region M51.16 ; Osseous stenosis of neural canal of lumbar region M99.33 ; Spondylosis without myelopathy or radiculopathy, lumbar region M47.816 ; Spondylosis without myelopathy or radiculopathy, lumbosacral region M47.817 ; Unilateral primary osteoarthritis, right knee M17.11 ; Spondylosis without myelopathy or radiculopathy, cervical region M47.812 ; Chronic pain syndrome G89.4 ; 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 anti-inflammatories (NSAID) Z79.1 and 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 analgesic Z79.891 [facility] [address] [place] [phone] 05/22/2024 Pete Stynowick Lumbar radiculopathy M54.16 ; Intervertebral disc disorders with radiculopathy, lumbar region M51.16 ; Osseous stenosis of neural canal of lumbar region M99.33 ; Spondylosis without myelopathy or radiculopathy, lumbar region M47.816 ; Spondylosis without myelopathy or radiculopathy, lumbosacral region M47.817 ; Unilateral primary osteoarthritis, right knee M17.11 ; Spondylosis without myelopathy or radiculopathy, cervical region M47.812 ; Chronic pain syndrome G89.4 ; 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 anti-inflammatories (NSAID) Z79.1 and 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 analgesic Z79.891 [facility] [address] [place] [phone] 05/24/2024 Pete Stynowick Lumbar radiculopathy M54.16 ; Spondylosis without myelopathy or radiculopathy, lumbar region M47.816 ; Intervertebral disc disorders with radiculopathy, lumbar region M51.16 ; Osseous stenosis of neural canal of lumbar region M99.33 ; Spondylosis without myelopathy or radiculopathy, lumbosacral region M47.817 ; Unilateral primary osteoarthritis, right knee M17.11 ; Spondylosis without myelopathy or radiculopathy, cervical region M47.812 ; Chronic pain syndrome G89.4 ; long-term (current) use of non-steroidal anti-inflammatories (NSAID) Z79.1 and 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 analgesic Z79.891 [facility] [address] [place] [phone] 05/28/2024 Pete Stynowick Spondylosis without myelopathy or radiculopathy, lumbar region M47.816 and Spondylosis without myelopathy or radiculopathy, lumbosacral region M47.817 [facility] [address] [place] [address] [place] [address] 06/13/2024 Pete Stynowick Lumbar radiculopathy M54.16 ; Spondylosis without myelopathy or radiculopathy, lumbar region M47.816 ; Intervertebral disc disorders with radiculopathy, lumbar region M51.16 ; Osseous stenosis of neural canal of lumbar region M99.33 ; Spondylosis without myelopathy or radiculopathy, lumbosacral region M47.817 ; Unilateral primary osteoarthritis, right knee M17.11 ; Spondylosis without myelopathy or radiculopathy, cervical region M47.812 ; Chronic pain syndrome G89.4 ; 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 anti-inflammatories (NSAID) Z79.1 and long-term (current) use of opiate analgesic Z79.891 [facility] [address] [place] [phone] 06/25/2024 Pete Stynowick Spondylosis without myelopathy or radiculopathy, lumbar region M47.816 and Spondylosis without myelopathy or radiculopathy, lumbosacral region M47.817 [facility] [address] [place] [phone] 07/03/2024 Pete Stynowick Spondylosis without myelopathy or radiculopathy, lumbar region M47.816 and Spondylosis without myelopathy or radiculopathy, lumbosacral region M47.817 [facility] [address] [place] [phone] 07/04/2024 Pete Stynowick [facility] [address] [place] [phone] 07/09/2024 Pete Stynowick Chronic pain syndrom e G89.4 [facility] [address] [place] [phone] 07/16/2024 Pete Stynowick Spondylosis without myelopathy or radiculopathy, lumbar region M47.816 ; Bilateral primary osteoarthritis of knee M17.0 ; Lumbar radiculopathy M54.16 ; Intervertebral disc disorders with radiculopathy, lumbar region M51.16 ; Osseous stenosis of neural canal of lumbar region M99.33 ; Spondylosis without myelopathy or radiculopathy, lumbosacral region M47.817 ; Unilateral primary osteoarthritis, right knee M17.11 ; Spondylosis without myelopathy or radiculopathy, cervical region M47.812 ; Chronic pain syndrome G89.4 ; 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 anti-inflammatories (NSAID) Z79.1 and 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 analgesic Z79.891 [facility] [address] [place] [phone] 07/30/2024 Pete Stynowick Bilateral primary osteoarthritis of knee M17.0 [facility] [address] [place] [phone] 08/02/2024 Pete Stynowick Bilateral primary osteoarthritis of knee M17.0 ; [...] M47.812 ; Chronic pain syndrome G89.4 ; 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 anti-inflammatories (NSAID) Z79.1 ; long-term (current) use of opiate analgesic Z79.891 and long-term (current) use of anticoagulants Z79.01 [facility] [address] [place] [address] 08/13/2024 Pete Stynowick Radiculopathy, lumba r region M54.16 ; Radiculopathy, lumbosacral region M54.17 and Osseous stenosis of neural canal of lumbar region M99.33 [facility] [address] [place] [phone] 08/28/2024 Pete Stynowick Lumbar radiculopathy M54.16 ; Sacroiliitis, not elsewhere classified M46.1 ; Bilateral primary osteoarthritis of knee M17.0 ; Spondylosis without myelopathy or radiculopathy, lumbar region M47.816 ; Intervertebral disc disorders with radiculopathy, lumbar region M51.16 ; Osseous stenosis of neural canal of lumbar region M99.33 ; Spondylosis without myelopathy or radiculopathy, lumbosacral region M47.817 ; Unilateral primary osteoarthritis, right knee M17.11 ; Spondylosis without myelopathy or radiculopathy, cervical region M47.812 ; Chronic pain syndrome G89.4 ; 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 for this. 04/12/2024 Lumbar radiculopathy (ICD-10 - M54.16) Schedule a bilateral L3-4 transforaminal epidural steroid injection. The risks of [...] is agreeable to proceeding at this time. 04/23/2024 Intervertebral disc disorders with radiculopathy, lumbar region (ICD-10 - M51.16) 04/23/2024 Radiculopathy, lumbar region (ICD-10 - M54.16) 05/22/2024 Lumbar radiculopathy (ICD-10 - M54.16) 05/24/2024 Lumbar radiculopathy (ICD-10 - M54.16) 05/28/2024 Spondylosis without myelopathy or radiculopathy, lumbar region (ICD-10 - M47.816) 05/28/2024 Spondylosis without myelopathy or radiculopathy, lumbosacral region (ICD-10 - M47.817) 05/24/2024 Spondylosis without myelopathy or radiculopathy, lumbar region (ICD-10 - M47.816) schedule a bilateral L3-5 medial branch nerve block as a diagnostic and potentially therapeutic endeavor to isolate the source of the patient's facet-generated low back pain originating from the L4-5 and L5-S1 facet joints and to ultimately perform radiofrequency ablation for more durable pain relief. The risks of this procedure including pain, bleeding, infection, nerve damage, spinal cord injury, paralysis, total spinal anesthesia resulting in cardiopulmonary arrest/, respiratory distress requiring intubation, neuritis after radiofrequency ablation, hyperglycemia, insomnia, hair loss, muscle atrophy, skin depigmentation, weight gain, fluid retention, adrenal suppression, osteoporosis resulting in fractures, avascular necrosis of the hip, cataracts, bleeding gastric ulcer, worsening pain and failure to relieve pain were discussed and the patient is agreeable to proceeding at this time. 06/13/2024 Lumbar radiculopathy (ICD-10 - M54.16) 06/25/2024 Spondylosis without myelopathy or radiculopathy, lumbar region (ICD-10 - M47.816) 06/25/2024 Spondylosis without myelopathy or radiculopathy, lumbosacral region (ICD-10 - M47.817) 07/03/2024 Spondylosis without myelopathy or radiculopathy, lumbar region (ICD-10 - M47.816) 07/03/2024 Spondylosis without myelopathy or radiculopathy, lumbosacral region (ICD-10 - M47.817) 07/09/2024 Chronic pain syndrome (ICD-10 - G89.4) 07/16/2024 Bilateral primary osteoarthritis of knee (ICD-10 - M17.0) Schedule a bilateral knee joint steroid injection. The risks of this procedure including pain, bleeding, infection, nerve damage, insomnia, hyperglycemia, hair loss, muscle atrophy, skin depigmentation, weight gain, fluid retention, adrenal suppression, immunosuppression, osteoporosis resulting in fractures, avascular necrosis of the hip, cataracts, bleeding gastric ulcer, worsening pain and failure to relieve pain were discussed and the patient is agreeable to proceeding at this time. 07/16/2024 Spondylosis without myelopathy or radiculopathy, lumbar region (ICD-10 - M47.816) 07/30/2024 Bilateral primary osteoarthritis of knee (ICD-10 - M17.0) 08/02/2024 Bilateral primary osteoarthritis of knee (ICD-10 [...] is agreeable to proceeding at this time. 08/13/2024 Radiculopathy, lumbar region (ICD-10 - M54.16) 08/13/2024 Radiculopathy, lumbosacral region (ICD-10 - M54.17) 08/28/2024 Sacroiliitis, not elsewhere classified (ICD-10 - M46.1) schedule a bilateral sacroiliac joint injection. The risks of this procedure including pain, bleeding, infection, insomnia, hyperglycemia, hair loss, muscle atrophy, skin depigmentation, weight gain, fluid retention, adrenal suppression, immunosuppression, osteoporosis resulting in fractures, avascular necrosis of the hip, cataracts, bleeding gastric ulcer, worsening pain and failure to relieve pain were discussed and the patient is agreeable to proceeding at this time. 08/28/2024 Lumbar radiculopathy (ICD-10 - M54.16) The patient was instructed to notify the office after imaging has been obtained so it can be reviewed and treatment plan formulated moving forward. Patient verbalized understanding and agrees with current plan. 05/15/2024 Lumbar radiculopathy (ICD-10 - M54.16) 05/15/2024 Intervertebral disc disorders with radiculopathy, lumbar region (ICD-10 - M51.16) 08/13/2024 Osseous stenosis of neural canal of lumbar region (ICD-10 - M99.33) 08/28/2024 Bilateral primary osteoarthritis of knee (ICD-10 - M17.0) 08/02/2024 Spondylosis without myelopathy or radiculopathy, lumbar region (ICD-10 - M47.816) 07/16/2024 Lumbar radiculopathy (ICD-10 - M54.16) 06/13/2024 Spondylosis without myelopathy or radiculopathy, lumbar region (ICD-10 - M47.816) schedule a bilateral L3-5 medial branch nerve block as a diagnostic and potentially therapeutic endeavor to isolate the source of the patient's facet-generated low back pain originating from the L4-5 and L5-S1 facet joints and to ultimately perform radiofrequency ablation for more durable pain relief. The risks of this procedure including pain, bleeding, infection, nerve damage, spinal cord injury, paralysis, total spinal anesthesia resulting in cardiopulmonary arrest/, respiratory distress requiring intubation, neuritis after radiofrequency ablation, hyperglycemia, insomnia, hair loss, muscle atrophy, skin depigmentation, weight gain, fluid retention, adrenal suppression, osteoporosis resulting in fractures, avascular necrosis of the hip, cataracts, bleeding gastric ulcer, worsening pain and failure to relieve pain were discussed and the patient is agreeable to proceeding at this time. 06/13/2024 Intervertebral disc disorders with radiculopathy, lumbar region (ICD-10 - M51.16) 05/24/2024 Intervertebral disc disorders with radiculopathy, lumbar region (ICD-10 - M51.16) 05/22/2024 Intervertebral disc disorders with radiculopathy, lumbar region (ICD-10 - M51.16) 04/23/2024 Osseous stenosis of neural canal of lumbar region (ICD-10 - M99.33) 04/12/2024 Osseous stenosis of neural canal of lumbar region (ICD-10 - M99.33) 04/12/2024 Spondylosis without myelopathy or radiculopathy, lumbar region (ICD-10 - M47.816) If the patient's axial low back pain persists after the above, schedule a bilateral L3-5 medial branch nerve block as a diagnostic and potentially therapeutic endeavor to isolate the source of the patient's facet-generated low back pain originating from the L4-5 and L5-S1 facet joints and to ultimately perform radiofrequency ablation for more durable pain relief. The risks of this procedure including pain, bleeding, infection, nerve damage, spinal cord injury, paralysis, total spinal anesthesia resulting in cardiopulmonary arrest/, respiratory distress requiring intubation, neuritis after radiofrequency ablation, hyperglycemia, insomnia, hair loss, muscle atrophy, skin depigmentation, weight gain, fluid retention, adrenal suppression, osteoporosis resulting in fractures, avascular necrosis of the hip, cataracts, bleeding gastric ulcer, worsening pain and failure to relieve pain were discussed and the patient is agreeable to proceeding at this time. 05/22/2024 Osseous stenosis of neural canal of lumbar region (ICD-10 - M99.33) 05/24/2024 Osseous stenosis of neural canal of lumbar region (ICD-10 - M99.33) 06/13/2024 Osseous stenosis of neural canal of lumbar region (ICD-10 - M99.33) 07/16/2024 Intervertebral disc disorders with radiculopathy, lumbar region (ICD-10 - M51.16) 08/02/2024 Intervertebral disc disorders with radiculopathy, lumbar region (ICD-10 - M51.16) 08/28/2024 Spondylosis without myelopathy or radiculopathy, lumbar region (ICD-10 - M47.816) 05/15/2024 Osseous stenosis of neural canal of lumbar region (ICD-10 - M99.33) 05/15/2024 Spondylosis without myelopathy or radiculopathy, lumbar region (ICD-10 - M47.816) 08/28/2024 Intervertebral disc disorders with radiculopathy, lumbar region (ICD-10 - M51.16) 08/02/2024 Osseous stenosis of neural canal of lumbar region (ICD-10 - M99.33) 07/16/2024 Osseous stenosis of neural canal of lumbar region (ICD-10 - M99.33) 05/24/2024 Spondylosis without myelopathy or radiculopathy, lumbosacral region (ICD-10 - M47.817) 06/13/2024 Spondylosis without myelopathy or radiculopathy, lumbosacral region (ICD-10 - M47.817) 04/12/2024 Spondylosis without myelopathy or radiculopathy, lumbosacral region (ICD-10 - M47.817) 05/22/2024 Spondylosis without myelopathy or radiculopathy, lumbar region (ICD-10 - M47.816) 05/22/2024 Spondylosis without myelopathy or radiculopathy, lumbosacral region (ICD-10 - M47.817) 04/12/2024 Unilateral primary osteoarthritis, right knee (ICD-10 - M17.11) Depending on the results of the patient's x-ray and if her right knee pain persists after the above consider a right knee joint injection. 05/24/2024 Unilateral primary osteoarthritis, right knee (ICD-10 - M17.11) 06/13/2024 Unilateral primary osteoarthritis, right knee (ICD-10 - M17.11) 07/16/2024 Spondylosis without myelopathy or radiculopathy, lumbosacral region (ICD-10 - M47.817) 08/02/2024 Spondylosis without myelopathy or radiculopathy, lumbosacral region (ICD-10 - M47.817) 08/28/2024 Osseous stenosis of neural canal of lumbar region (ICD-10 - M99.33) 05/15/2024 Spondylosis without myelopathy or radiculopathy, lumbosacral region (ICD-10 - M47.817) 05/15/2024 Unilateral primary osteoarthritis, right knee (ICD-10 - M17.11) 08/28/2024 Spondylosis without myelopathy or radiculopathy, lumbosacral region (ICD-10 - M47.817) 08/02/2024 Unilateral primary osteoarthritis, right knee (ICD-10 - M17.11) 06/13/2024 Spondylosis without myelopathy or radiculopathy, cervical region (ICD-10 - M47.812) 07/16/2024 Unilateral primary osteoarthritis, right knee (ICD-10 - M17.11) 05/24/2024 Spondylosis without myelopathy or radiculopathy, cervical region (ICD-10 - M47.812) 04/12/2024 Spondylosis without myelopathy or radiculopathy, cervical region (ICD-10 - M47.812) If the patient's axial neck pain and radiating occipital headaches persists after the above, schedule a left C3-5 medial branch nerve block as a diagnostic and potentially therapeutic endeavor to isolate the source of the patient's facet-generated neck pain originating from the C3-4 through C4-5 facet joints and to ultimately perform radiofrequency ablation for more durable pain relief. The risks of this procedure including pain, bleeding, infection, nerve damage, spinal cord injury, paralysis, total spinal anesthesia resulting in cardiopulmonary arrest/, respiratory distress requiring intubation, neuritis after radiofrequency ablation, hyperglycemia, insomnia, hair loss, muscle atrophy, skin depigmentation, weight gain, fluid retention, adrenal suppression, osteoporosis resulting in fractures, avascular necrosis of the hip, cataracts, bleeding gastric ulcer, worsening pain and failure to relieve pain were discussed and the patient is agreeable to proceeding at this time. The patient plans to follow-up with Dr. Espinoza to discuss her persistent neck pain as well. 05/22/2024 Unilateral primary osteoarthritis, right knee (ICD-10 - M17.11) 05/22/2024 Spondylosis without myelopathy or radiculopathy, cervical region (ICD-10 - M47.812) 05/24/2024 Chronic pain syndrome (ICD-10 - G89.4) 06/13/2024 Chronic pain syndrome (ICD-10 - G89.4) 07/16/2024 Spondylosis without myelopathy or radiculopathy, cervical region (ICD-10 - M47.812) 08/02/2024 Spondylosis without myelopathy or radiculopathy, cervical region (ICD-10 - M47.812) 04/12/2024 Chronic pain syndrome (ICD-10 - G89.4) 08/28/2024 Unilateral primary osteoarthritis, right knee (ICD-10 - M17.11) 05/15/2024 Spondylosis without myelopathy or radiculopathy, cervical region (ICD-10 - M47.812) 05/15/2024 Chronic pain syndrome (ICD-10 - G89.4) 08/28/2024 Spondylosis without myelopathy or radiculopathy, cervical region (ICD-10 - M47.812) 08/02/2024 Chronic pain syndrome (ICD-10 - G89.4) 07/16/2024 Chronic pain syndrome (ICD-10 - G89.4) 06/13/2024 long-term (current) use of non-steroidal anti-inflammatories (NSAID) (ICD-10 - Z79.1) 05/24/2024 long-term (current) use of non-steroidal anti-inflammatories (NSAID) (ICD-10 - Z79.1) 05/22/2024 Chronic pain syndrome (ICD-10 - G89.4) 04/12/2024 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 The patient was advised to avoid driving, climbing ladders and operating dangerous machinery after taking this medication. The patient was advised to avoid consuming alcohol, illicit drugs and sedative/hypnotic drugs in conjunction with this medication due to the risk of profound respiratory depression and . The patient was directed to utilize the lowest effective dose possible. The importance of safe storage and keeping opioid medications locked up at all times in order to prevent theft and unintended consumption by friends, relatives or anyone else was discussed with the patient at length. The patient agrees to fully comply with the above. The [place] and [place] PDMP were reviewed and were appropriate. The patient is requesting a refill of her tramadol that she was prescribed after a root canal. Given that the patient is utilizing daily marijuana I told her it was best to avoid chronic opioids. She will try a Medrol Dosepak and see how things go after her injection. 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 anti-inflammatories (NSAID) (ICD-10 - Z79.1) 08/28/2024 Chronic pain syndrome (ICD-10 - G89.4) 05/15/2024 long-term (current) use of non-steroidal anti-inflammatories (NSAID) (ICD-10 - Z79.1) 05/15/2024 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 analgesic (ICD-10 - Z79.891) 08/02/2024 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 08/28/2024 long-term (current) use of opiate analgesic (ICD-10 - Z79.891) 08/28/2024 long-term (current) use of anticoagulants (ICD-10 - Z79.01) 04/12/2024 Other Thank you Lakeshia Lucas [facility] for your kind referral and for involving me in the care of this patient. 05/24/2024 Other The above-named patient was evaluated in [...] with Patient and Medical Decision Makin minutes 06/13/2024 Other The above-named patient was evaluated in [...] with Patient and Medical Decision Makin minutes 07/03/2024 Other The patient voiced understanding of the treatment plan and all questions were addressed. Obtain informed consent: Bilateral Lumbar 3-5 Radiofrequency Ablation under fluoroscopy. Monitor pulse, blood pressure and SaO2 before, after and as needed during procedure. Verify if the patient is currently taking blood thinner. Verify patients is not currently on antibiotics for infection. Patient may drive home. CARE PLAN: Knowledge deficit: Will verbalize understanding of the proposed procedure, including risk of electrical burn, complications and benefits of the procedure? Will the patient exhibit understanding of the discharge instructions? Safety: The potential for injury related to surgery was assessed; Fire risk score determined, test completed if applicable. Risk for injury related to wrong patient, site, procedure. TIME OUT for safety of patient and includes patient name, , procedure site, side, level, allergies, blood thinners, antibiotics, surgical counts, consents correct and signed etc. Risk for infection: Implements aseptic technique, protects from cross-contamination, performs skin preparations. Pain/Discomfort: Patient verbalizes acceptable level of pain relief prior to discharge and the ability to engage in desired activity. I HAVE REVIEWED THE PATIENT'S MEDICATION LIST AND HAVE RECONCILED THE ABOVE MEDICATIONS. PATIENT GOALS AND SAFETY CONCERNS HAVE BEEN ADDRESSED. RN initials __JW__ 07/16/2024 Other The above-named patient was evaluated in [...] with Patient and Medical Decision Makin minutes 08/02/2024 Other The above-named patient was evaluated [...] with Patient and Medical Decision Makin minutes 08/28/2024 Other The above-named patient was evaluated in [...] Medical Decision Makin minutes PLAN OF TREATMENT Pending Test Test Name Order Date X ray : Knee, right 04/12/2024 MRI : Lumbar Spine without contrast (411 [id number]) 08/28/2024 Next Appt Details Provider Name:Pete chin, 09/07/2024 10:30:00 AM, [address] [place], [address], Insurance Providers Payer Name Payer Address Payer Phone Subscriber Number Group Number Insured Name Patient Relationship to Insured Coverage Start Date Coverage End Date [employer] MEDICARE [address] [place] [phone] [id number] DIAZ DIAMOND Self - patient is the insured MEDICAL (GENERAL) HISTORY Medical History History ICD Code Vicki's disease Hypothyroidism Hypertension Depression Anxiety Insomnia Surgical History Surgery Date(Month/Year) C5-7 ACDF--Dr. Espinoza 01/2023 SCS--[employer] 07/2023
--- OUTSIDE RECORDS SUMMARY | 2024-08-30 09:19 | XMS_ITS | Clinical Summary ---
Author Organization [facility] Address [address] [place] [address] Care Team Providers Care Supervisor [place] Name Role Phone Unavailable Primary Care Provider Unavailabl e Encounters Date Type Department Care Team Description 08/28/2024 External Device Data [facility] ABSTRACTION Provider, Abstract 08/23/2024 External Device Data [facility] ABSTRACTION Provider, Abstract 08/22/2024 External Device Data [facility] ABSTRACTION Provider, Abstract 08/21/2024 External Device Data [facility]STRACTION Provider, Abstract 06/20/2024 External Device Data [facility]STRACTION Provider, Abstract 06/09/2024 External Device Data [facility] ABSTRACTION Provider, Abstract 06/08/2024 External Device Data [facility] ABSTRACTION Provider, Abstract 06/05/2024 External Device Data [facility] ABSTRACTION Provider, Abstract from Last 3 Months Social History Tobacco Use Types Packs/Day Years Used Date Smoking Tobacco: Never Assessed Comments Unknown Sex and Gender Information Value Date Recorded Sex Assigned at Not on file Legal Sex Female 10:33 PM CDT Gender Identity Not on file Sexual Orientation Not on file Plan of Treatment Health Maintenance Due Date Last Done Comments Pre-Diabetes and Diabetes Screening 1954 DTAP/TDAP/TD VACCINES (1 - Tdap) 1973 BREAST CANCER SCREENING 1994 COLORECTAL SCREENING 1999 Colorectal Cancer Screening 1999 FIT-DNA Q 3 years 1999 FIT/FOBT Q 1 year 1999 Flex Sig/CT Colonography Q 5 years 1999 PNEUMOCOCCAL VACCINE 50+ YEARS (1 of 1 - PCV) 02/01/20 04 ZOSTER VACCINE (1 of 2) 02/01/2004 OSTEOPOROSIS SCREENING 2019 INFLUENZA VACCINE (#1) 2023 01/16/2018 RSV VACCINE (60+ or ) (1 - 1-dose 75+ series) 2029 Insurance AETNA PPO [facility]
--- OUTSIDE RECORDS SUMMARY | 2024-08-30 09:19 | XMS_ITS ---
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 Name Role Phone JOCY ALVES MD Primary Care Provider Pete Horvath Unavailable [phone] HERB SILVA MIKEY Unavailable Unavailable ALLERGIES Allergen (clinical drug ingredient) Drug/Non Drug Allergy documented on EMR Reaction Allergy Type Onset Date Status buprenorphine Buprenorphine nausea and vomiting Drug Allergy Active hydrocodone Hydrocodone itching Drug Allergy Act biju tramadol Tramadol stomach upset Drug Allergy Act biju REASON FOR VISIT Left > Right Low Back Pain, Right = Left Lower Extremity Pain MEDICATIONS Medication SIG (Take, Route, Frequency, Duration) Notes Start Date End Date Status methylPREDNISolone 4 MG as directed Orally Active Tylenol with Codeine #3 300- 30 MG 1 tablet as needed Orally every 6 hrs Active Finasteride 1 MG TAKE 1 TABLET BY JUANCARLOS TH DAILY Oral for 100 Active Levothyroxine Sodium 50 MCG TAKE 1 TABLE T BY MOUTH DAILY Oral for 100 Active Carvedilol 6.25 MG TAKE 1 TABLET BY JUANCARLOS TH TWICE DAILY Oral for 90 Active B Complex - as directed Orally Active Tylenol 325 MG 1 tablet as needed Orally every 6 hrs Active Ezetimibe 10 MG TAKE 1 TABLET BY JUANCARLOS TH DAILY Oral for 90 Active Fish Oil 500 MG 1 capsule Orally Thr ee times a day for 30 day(s) Active Magnesium 300 MG 1 capsule with a keyshawn l Orally Once a day for 30 day(s) Active Ibuprofen 200 MG 1 tablet with food o r milk as needed Orally Three times a day Active PROBLEMS Problem Type ICD Code Onset Dates Problem Status W/U Status Risk SNOMED Code Notes Problem Radiculopathy, lumbosacral region (M54.17) Active confirmed Lumbosacral radiculopathy (2718465) VITAL SIGNS Blood pressure systolic 117 mm Hg 08/14/19 25 Blood pressure diastolic 72 mm Hg 025 Heart Rate 80 /min 08/13/2024 Respiratory Rate 18 /min 08/13/2024 Height 5 ft 2 in in 08/13/2024 Weight 179 lbs 08/13/2024 BMI 32.74 kg/m2 08/13/2024 Post procedure VS= Bp 139/85 , P 81 , R 16Discharged home per ambulatory, in no acute distress. 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 The specific risks of this procedure including pain, bleeding, [...] to proceeding at this time. The patient was placed in the prone position on the fluoroscopy table and standard ASA monitors were applied. The back was prepped and draped in the usual sterile fashion with chlorhexidine 2%/IPA 70%. The c-arm was obliqued and tilted to identify the above selected levels. The left L5-S1 + S1 neural foramina were identified and a 23 gauge 3.5 inch spinal needle was inserted under fluoroscopic guidance towards the junction of the inferior endplate and superior articular process until the superior articular process was contacted at both levels. A lateral view was taken and the needle tip was advanced into the posterior aspect of the neuroforamen. The subcutaneous structures were anesthetized with 3 mL of 1% Preservative-Free lidocaine during needle placement. An AP view was taken and after negative aspiration for blood, air or CSF, 4 mLs (2 mLs at each level) of Omnipaque 240 contrast dye was injected under live fluoroscopy for an epidurogram showing good spread within the epidural space and along the selected nerve root. No intravascular or intrathecal spread was noted. A solution of 10 mg of Preservative-Free Dexamethasone (10 mg/mL), plus 3 mL of 0.25% Preservative-Free bupivacaine was mixed and after negative aspiration 2 mL of this solution was slowly injected into the epidural space at each level. The needles were removed, the skin was cleaned and band-aids were placed over the puncture sites. The patient tolerated the procedure well, was able to ambulate without difficulty and was monitored for 20 minutes. Patient reports a 90% reduction in typical pain immediately postprocedure. The patient remained hemodynamically and neurologically stable. No apparent complications were observed. Postoperative instructions were reviewed with the patient. 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 X-ray time: 18 seconds Progress Notes * Examination Category Sub-Category Detail [...] patient's typical axial low back pain. Aj's, [place]'s and [place]'s are positive bilaterally. There is [...] and Follow-up: Follow-up Plan documen mar:: Yes MIPS Quality 2020: MIPS Documented:: Compliant
--- OUTSIDE RECORDS SUMMARY | 2024-08-30 09:19 | XMS_ITS | Clinical Summary ---
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 Role Phone Manpreet Tavarez MD Unavailable [phone] Shawn Galeana MD Primary Care Provider [phone] Allergies Active Allergy Reactions Criticality Noted Date Comments Buprenorphine Nausea & Vomiting Low 09/07/2023 Hydrocodone Itching Low 12/23/2021 Tramadol Stomach upset Low 04/26/2023 Medications levothyroxine (SYNTHROID) 50 mcg tablet Take 1 tablet (50 mcg total) by mouth daily 03/12/2020 Active carvediloL (COREG) 6.25 mg tablet TAKE 1 TABLET BY MOUTH EVERY 12 HOURS WITH FOOD OR SNACK 07/06/2021 Active ezetimibe (ZETIA) 10 mg tablet Take 1 tablet (10 mg total) by mouth daily 08/11/2021 Active finasteride (PROPECIA) 1 mg tablet Take 1 tablet (1 mg total) by mouth daily 07/01/2022 Active diphenhydrAMINE (BENADRYL) 50 mg capsule Take 1 capsule (50 mg total) by mouth nightly as needed for itching Active Bacillus coagulans (PROBIOTIC, B. COAGULANS, ORAL) Take 1 tablet by mouth daily Active omega-3 fatty acids-fish oil 300-1,000 mg capsule Take 2 capsules (2 g total) by mouth daily Active prednisoLONE acetate (PRED FORTE) 1 % ophthalmic suspension 1 drop 4 (four) times a day X 10 days Active vitamin b complex tablet Take 1 tablet by mouth daily Active cholecalciferol (VITAMIN D-3) 5,000 unit tablet Take 1 tablet (5,000 Units total) by mouth daily With vitamin K2 Active ascorbic acid (ascorbic acid with casper hips) 500 mg tablet,chewable Take 1 tablet/chew tab (500 mg total) by mouth daily Active acetaminophen-c odeine (TYLENOL with CODEINE #3) 300-30 mg per tabletIndicatio ns:Pain in joint, multiple sites Take 1 tablet by mouth 2 (two) times a day as needed for pain for pain 45 tablet 10/04/2023 Active Active Problems Problem Noted Date Diagnosed Date Chronic pain of both knees 03/22/2023 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 Sacroiliitis 04/07/2021 Radiculopathy, lumbosacral region 02/02/2021 Spinal stenosis of lumbar re gion without neurogenic claudication 02/02/2021 Lumbosacral spondylosis without myelopathy 02/02 Cervicalgia 02/02/2021 Pain in joint, multiple sites 02/02/2021 Positive DOMINGO (antinuclear antibody) 04/02/2020 Assessment & Plan (04/28/2020 11:58 AM SEASONING SPRAYER): 65yoF referred for evaluation due to low positive DOMINGO 1:80 with ds DNA 17 and ESR 42 with a longstanding history of widespread joint pain which does not sound particularly inflammatory; generally more painful with activity, particularly ambulation which is becoming challenging. She complains of symptoms concerning for plantar fasciitis with heel pain in the AM improving after several steps. She does report some CTD symptoms including photosensitivity and alopecia and also complains of fatigue and dry eyes. +FH of RA. By exam she is noted to have pain at the R greater trochanter with external rotation and a few tender MTPs, no synovitis is noted. Our workup revealed serologies c/w known hypothyroidism, her DOMINGO was negative and pelvic XR was unremarkable. Overall there is not evidence at this time to substantiate any rheumatologic diagnosis outside of autoimmune thyroid disease. Suspect that her pain is due to OA, discussed use of Tylenol Arthrits, routine use of curcumin, and cyclobenzaprine 5 mg 2 hours before bed x7-10 days to assess response. Consideration for trial of gabapentin. If radicular symptoms persist, then would consider MRI Lspine to further evaluate. Pt will continue follow up with her PCP and follow up with us as needed should symptoms warrant. Assessment & Plan (04/02/2020 4:06 PM SEASONING SPRAYER): 65yoF referred for evaluation due to low positive DOMINGO 1:80 with ds DNA 17 and ESR 42 with a longstanding history of widespread joint pain which does not sound particularly inflammatory; generally more painful with activity, particularly ambulation which is becoming challenging. She complains of symptoms concerning for plantar fasciitis with heel pain in the AM improving after several steps. She does report some CTD symptoms including photosensitivity and alopecia and also complains of fatigue and dry eyes. +FH of RA. By exam she is noted to have pain at the R greater trochanter with external rotation and a few tender MTPs, no synovitis is noted. She did not have fibromyalgia tender points on exam today. Overall have a lower suspicion for inflammatory etiology of her pain complaints, there is some consideration for CTD given some of her symptoms and the low positive serologies. Suspect that her pain is due to OA, discussed use of Tylenol, turmeric, and Voltaren gel. She is opposed ot any oral NSAIDs at this time. To further evaluate will check the AVISE panel and obtain a pelvis xray with plan for follow up in 2 weeks to review results. Polyarthralgia 04/02/2020 Surgical History Surgery Date Site/Laterality Comments FLUORO GUIDED ASPIRATION OR INJECTION INTERMEDIATE JOINT RIGHT 04/18/2023 Right APPENDECTOMY CHOLECYSTECTOMY KNEE ARTHROSCOPY Bilateral CARPAL TUNNEL RELEASE Bilateral CERVICAL SPINE SURGERY TUBAL LIGATION Medical History Medical History Date Comments Hypertension Vicki's disease Chronic pain disorder PONV (postoperative nausea and vomiting) Motion sickness Mitral valve prolapse GERD (gastroesophageal reflux disease) Hiatal hernia Family History Medical History Relation Name Comments Heart disease Father Hypertension Father Cancer Mother Relation Name Status Comments Father Alive Mother Social History Tobacco Use Types Packs/Day Years Used Date Smoking Tobacco: Former Cigarettes Q uit: 1986 Smokeless Tobacco: Never Tobacco Cessation:Counseling Given: Not Answered Personal Safety Answer Date Recorded Have you ever been in or are you currently in a harmful physical or emotional relationship or is someone making you feel afraid or unsafe? Denies 07/07/2023 Comments No Sex and Gender Information Value Date Recorded Sex Assigned at Not on file Legal Sex Female 1:41 AM SEASONING SPRAYER Gender Identity Not on file Sexual Orientation Not on file Obstetrics History Last Filed Vital Signs Vital Sign Reading Time Taken Comments Blood Pressure 138/87 09/20/2023 1:39 PM CDT Pulse 60 09/20/2023 1:39 PM CDT Temperature 36.4 C (97.6 F) 07/07/2023 9:08 AM CDT Respiratory Rate 14 09/20/2023 1:39 PM CDT Oxygen Saturation 100% 09/20/2023 1:39 PM CDT Inhaled Oxygen Concentration - - Weight 81.6 kg (180 lb) 09/17/2023 12:29 PM CDT Height 157.5 cm (5' 2) 09/17/2023 12:29 PM CDT Body Mass Index 32.92 09/17/2023 12:29 PM CDT Plan of Treatment Health Maintenance Due Date Last Done Comments Breast Cancer Screening-Mammogram 1954 Colon Cancer Screening-Colonoscopy 1954 Depression Screening 1954 Hepatitis C Screening 1954 Osteoporosis Screening-Bone Density Scan 1954 DTaP/Tdap/Td Vaccine (1 - Tdap) 1965 Hepatitis B Screening 02/01/1972 Pneumococcal vaccine 65+ (1 of 1 - PCV) 02/01/2004 Zoster Vaccine (1 of 2) 02/01/2004 Well Visit 65+ 2019 Covid-19 Vaccine ( - season) 2023 01/28/2021, 06/23/2020, 05/16/2020 Fall Risk Assessment 09/19/2024 09/20/2023 Influenza Vaccine (Season Ended) 2024 01/28/2021, 03/07/2020, 01/16/2018 Medical Devices Implanted Type Area Community Outreach Coordinator Device Identifier Shelf Expiration Date Model / Serial / Lot Medtronic Inc Vectris 5mm 60cm 1x8 Electrode Mri Lead Neurostimulator [id number] - [id number] Implanted:Qty: 1 on 07/07/2023 by Cristobal Sterling MD at [facility] N/A: Back Medtronic Inc 12/30/2026 [id number] / / [id number] Med[employer]onic Inc Vectris 5mm 60cm 1x8 Electrode Mri Lead Neurostimulator [id number] - [id number] Implanted:Qty: 1 on 07/07/2023 by Cristobal Sterling MD at [facility] N/A: Back Medtronic Inc 05/18/2027 [id number] / / [id number] Medtronic Inc Neurostimulator Implantable Chronic Pain Rs2 [id number] - [id number] - [id number] Implanted:Qty: 1 on 07/07/2023 by Cristobal Sterling MD at [facility] N/A: Back Med[employer]onic Inc 05/01/2024 [id number] / [id number] / Medtronic Inc Envelope Absrb 2.7x2.5in Antibacterial Tyrx Medium Strl [id number] - [id number] Implanted:Qty: 1 on 07/07/2023 by Cristobal Sterling MD at [facility] N/A: Back [employer]onic Inc 01/21/2024 [id number] / / [id number] Explanted Type Area Community Outreach Coordinator Device Identifier Shelf Expiration Date Model / Serial / Lot [employer] Kit Lead Neurostimulator Trial 8 Electrode 60cm [id number] - [id number] - [id number] Implanted:Qty: 1 on 02/28/2023 at [facility] Phys[facility] Office Building 2 Explanted:Qty: 1 Lead Back [employer] 10/22/2025 [id number] / [id number] / [employer] Kit Lead Neurostimulator Trial 8 Electrode 60cm [id number] - [id number] - [id number] Implanted:Qty: 1 on 02/28/2023 at [facility] 2 Explanted:Qty: 1 Lead Back [employer] 10/22/2025 [id number] / [id number] / Insurance AETNA MEDICARE MEDICARE [employer] [facility] GOLD REF MEDICARE [facility] ADVANTRA Care Teams Composite Bond Worker Relationship Specialty Start Date End Date Shawn Galeana MD [address] [place] [id number] PCP - General Family Medicine 08/12/23 Manpreet Tavarez MD [address] [place] [address] Consulting Physician Rheumatology 03/19/20
--- OUTSIDE RECORDS SUMMARY | 2024-08-30 09:19 | XMS_ITS | Referral Summary ---
Author Organization [facility] [address] [facility] Address [address] [place] [id number] Care Team Providers Care Model Photographers' Name Role Phone Manpreet Tavarez MD Unavailable [phone] Shawn Galeana MD Primary Care Provider [phone] Allergies Active Allergy Reactions Criticality Noted Date [...] 04/02/2020 Assessment & Plan (04/28/2020 11:58 AM SEQUINS SLINGER): 65yoF referred for evaluation due to low [...] warrant. Assessment & Plan (04/02/2020 4:06 PM SEQUINS SLINGER): 65yoF referred for evaluation due to low [...] 2 weeks to review results. Polyarthralgia 04/02/2020 Social History Tobacco Use Types Packs/Day Years [...] on file Legal Sex Female 1:41 AM SEQUINS SLINGER Gender Identity Not on file Sexual Orientation [...] 09/17/2023 12:29 PM CDT Plan of Treatment Not on file Medical Devices Implanted Type Area Cotton Acreage Measurer Device Identifier Shelf Expiration Date Model / Serial / Lot [employer] Vectris 5mm 60cm 1x8 Electrode Mri Lead Neurostimulator [id number] - [id number] Implanted:Qty: 1 on 07/07/2023 by Cristobal Sterling MD at [facility] N/A: Back [employer] 12/30/2026 [id number] / / [id number] [employer] Vectris 5mm 60cm 1x8 Electrode Mri Lead Neurostimulator [id number] - [id number] Implanted:Qty: 1 on 07/07/2023 by Cristobal Sterling MD at [facility] N/A: Back [employer] 05/18/2027 [id number] / / [id number] Med[employer] Inc Neurostimulator Implantable Chronic Pain Rs2 [id number] - [id number] - [id number] Implanted:Qty: 1 on 07/07/2023 by Cristobal Sterling MD at [facility] N/A: Back [employer] 05/01/2024 [id number] / [id number] / [employer] Envelope Absrb 2.7x2.5in Antibacterial Tyrx Medium Strl [id number] - [id number] Implanted:Qty: 1 on 07/07/2023 by Cristobal Sterling MD at [facility] N/A: Back [employer] 01/21/2024 [id number] / / [id number] Explanted Type Area Cotton Acreage Measurer Device Identifier Shelf Expiration Date Model / Serial / Lot [employer] Kit Lead Neurostimulator Trial 8 Electrode 60cm [id number] - [id number] - [id number] Implanted:Qty: 1 on 02/28/2023 at [facility] 2 Explanted:Qty: 1 Lead Back [employer] 10/22/2025 72 [id number] / [id number] / [employer] Kit Lead Neurostimulator Trial 8 Electrode 60cm [id number] - [id number] - [id number] Implanted:Qty: 1 on 02/28/2023 at [facility] 2 Explanted:Qty: 1 Lead Back [employer] 10/22/2025 72 003 / [id number] / Insurance AET MEDICARE AETNA [facility] MEDICARE [facility] PPO [facility] Care Teams Model Photographers' Relationship Specialty Start Date End Date Shawn Galaena MD [facility] [place] [address] PCP - General Family Medicine 08/12/23 Manpreet Tavarez MD [address] [place] [address] Consulting Physician Rheumatology 03/19/20
--- OUTSIDE RECORDS SUMMARY | 2024-08-30 09:19 | XMS_ITS | Patient Health Record ---
Author Organization [facility] Address [address] [facility]. [address] [place] [address] Care Team Providers Care Milking Worker Name Role Phone Jaxsno Betancourt MD Primary Care Provider UnavailZev Alvarez Unavailable [phone] Reason For Referral No Information Plan Of Treatment No Information Insurance Providers Payer Name Payer Address Payer Phone Subscriber Number Group Number Insured Name Patient Relationship to Insured Coverage Start Date Coverage End Date Medicare E2 [address] [address] [place] [address] [phone] [id number] Mckayla Monroy Self - patient is the insured [employer] Select Choice E2 [address] [place] [address] [id number] Plan F Mckayla Monroy Self - patient is the insured
--- OUTSIDE RECORDS SUMMARY | 2024-08-30 09:19 | XMS_ITS ---
Author Organization [facility] Address [address] [place] [address] [place] [address] Care Team Providers Care Radial Drill Operator Name Role Phone JOCY ALVES MD Primary Care Provider Pete Horvath Unavailable [phone] HERB SILVA MIKEY Unavailable Unavailable ALLERGIES Allergen (clinical drug ingredient) Drug/Non Drug Allergy documented on EMR Reaction Allergy Type Onset Date Status buprenorphine Buprenorphine nausea and vomiting Drug Allergy Active hydrocodone Hydrocodone itching Drug Allergy Act biju tramadol Tramadol stomach upset Drug Allergy Act biju REASON FOR VISIT Follow Up, Right = Left Low Back Pain, Right > Left Knee Pain MEDICATIONS Medication SIG (Take, Route, Frequency, [...] methylPREDNISolone 4 MG as directed Orally Active Ibuprofen 200 MG 1 tablet with [...] JUANCARLOS TH DAILY Oral for 90 Active Tylenol 325 MG 1 tablet as needed Orally every 6 hrs Active SOCIAL HISTORY Tobacco Use: Social History [...] W/U Status Risk SNOMED Code Notes Problem Sacroiliitis, not elsewhere classified (M46.1) Active confirmed Solitary sacroiliitis (042739577) VITAL SIGNS Blood pressure systolic 133 mm Hg 08/29/19 25 Blood pressure diastolic 83 mm Hg 025 Heart Rate 69 /min 08/28/2024 Respiratory Rate 18 /min 08/28/2024 Height 5 ft 2 in in 08/28/2024 Weight 180 lbs 08/28/2024 BMI 32.92 kg/m2 08/28/2024 Encounters Encounter Location Date Provider Diagnosis [facility] [address] [facility] [place] [address] 08/28/2024 Pete Ivan Lumbar radiculopathy M54.16 ; Sacroiliitis, not elsewhere [...] M47.812 ; Chronic pain syndrome G89.4 ; penitentiary (current) use of non-steroidal anti-inflammatories (NSAID) Z79.1 ; penitentiary (current) use of opiate analgesic Z79.891 and penitentiary (current) use of anticoagulants Z79.01 ASSESSMENTS Encounter Date Diagnosis Assessment Notes Treatment Notes Treatment Clinical Notes 08/28/2024 Lumbar radiculopathy (ICD-10 - M54.16) The patient was instructed to notify the office after imaging has been obtained so it can be reviewed and treatment plan formulated moving forward. Patient verbalized understanding and agrees with current plan. 08/28/2024 Sacroiliitis, not elsewhere classified (ICD-10 - [...] agreeable to proceeding at this time. 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) 08/28/2024 Spondylosis without myelopathy or radiculopathy, lumbosacral region (ICD-10 - M47.817) 08/28/2024 Unilateral primary osteoarthritis, right knee (ICD-10 - M17.11) 08/28/2024 Spondylosis without myelopathy or radiculopathy, cervical region (ICD-10 - M47.812) 08/28/2024 Chronic pain syndrome (ICD-10 - G89.4) 08/28/2024 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 Patient verbalized understanding and agrees with current plan. Sacroiliitis, not elsewhere classified s chedule a bilateral sacroiliac joint injection. The risks of this procedure including pain, bleeding, infection, insomnia, hyperglycemia, hair loss, muscle atrophy, skin depigmentation, weight gain, fluid retention, adrenal suppression, immunosuppression, osteoporosis resulting in fractures, avascular necrosis of the hip, cataracts, bleeding gastric ulcer, worsening pain and failure to relieve pain were discussed and the patient is agreeable to proceeding at this time. Other The above-named patient was evaluated in [...] with Patient and Medical Decision Makin minutes Pending Test Test Name Order Date MRI : Lumbar Spine without contrast (721 [id number]) 08/28/2024 Next Appt Details Follow Up: bilateral SIJ danie roid injection, Reason: Provider Name:Pete Ad chin, 09/07/2024 10:30:00 AM, [address] [place], [address], Progress Notes * Examination Category Sub-Category Detail [...] patient's typical axial low back pain. Aj's, [place]'s and [place]'s are positive bilaterally. There is [...] space narrowing. Assessment and Follow-up: Follow-up Plan eduard manuel:: Yes
== END 2024-08-30 09:15 | disposition home or self-care (01) ==
LOC: ANHIMG 09:15
PROVIDERS: PCP Family Medicine; Visit Provider Obstetrics & Gynecology
DX: Z12.31 Encounter for screening mammogram for malignant neoplasm of breast (principal)
CPT/HCPCS: 77063; 77067